=== PATIENT | female | born 1955 | race African-American/Black ===

== ENCOUNTER → 2016-12-07 | Outpatient (CLI) | payer MEDICARE | LOC: WI 13:03 | PROVIDERS: ATTEND Family Medicine | DX: Z78.0 Asymptomatic menopausal state (principal); M85.88 Other specified disorders of bone density and structure, other site | CPT/HCPCS: 77080 ==

== ENCOUNTER → 2016-12-14 | Outpatient (CLI) | payer MEDICARE | LOC: RAD 12:12 | PROVIDERS: ATTEND Family Medicine | DX: Z87.891 Personal history of nicotine dependence (principal) | CPT/HCPCS: G0297 ==

== ENCOUNTER → 2017-01-09 | Outpatient (CLI) | payer MEDICARE ==
--- NOTE | 2017-01-11 09:54 | RADIOLOGY REPORT (SQ) ---
EXAM DESCRIPTION: PET CT LIMITED COMPLETED DATE/TIME: 01/09/2017 9:17 pm REASON FOR STUDY: SOLITARY PULMONARY NODULE R91.1 SOLITARY PULMONARY NODULE COMPARISON: CT lung cancer screening 12/14/2016 RADIONUCLIDE AND DOSE: 74 mCi F18 FDG The route of agent administration: Intravenous FASTING BLOOD SUGAR: 11.7 mg/dl CONTRAST TYPE AND DOSE: No CT contrast given. TECHNIQUE: Blood glucose level was verified. Above dose of FDG was injected intravenously. 2-D seg mented attenuation correction images were obtained from the base of the skull to the midthighs. Nonc ontrast CT images were obtained for attenuation correction and fusion with emission images. CT image s were performed without oral or intravenous contrast and are not sensitive for parenchymal lesions. A series of overlapping emission PET images were obtained. Images reviewed and manipulated at [facility] [employer] work station by the radiologist. Images stored on PACS. LIMITATIONS: None. FINDINGS: HEAD AND NECK: No worrisome areas of increased metabolic activity in the soft tissues of t he head and neck. There is mild bilateral physiologic activity in the pharyngeal tonsils with SUV of 5, and mild vocal cord activity likely from talking after the FDG injection. CHEST: There is significant obstructive lung disease with hyperlucency and hyper inflation of both up per lobes. In the right upper lobe, a spiculated mass with increased metabolic activity is present, with highly suspicious for malignancy. This measures 3.5 x 2.5 cm in size with SUV of 12. Accounting for differ ences in technique, size is similar compared to CT screening chest CT 12/14/2016. On axial under age 64, slightly superior and lateral to the dominant upper lobe mass, a 6 mm nodule i s present which is metabolically active with SUV of 2. This is worrisome for a small satellite tumor lesion adjacent to the upper lobe dominant mass. This is measured on axial CT image 63. No hypermetabolic masses or adenopathy in the mediastinum or mak. Remainder of the lungs are unrema rkable. In the upper inner quadrant right breast, a 2.5 x 1.5 cm ill-defined nodule is present with faint met abolic activity SUV 1.48 this is best shown on axial CT image 66. Diagnostic bilateral mammograms an d right breast ultrasound recommended for followup ABDOMEN AND PELVIS: No areas of abnormal metabolic activity in the abdomen or pelvis. Expected physi ologic activity is present in the genitourinary system and bowel. Multiple hepatic cysts are present . BONES: No areas of increased metabolic activity in the bony structures worrisome for metastatic dise ase PROXIMAL LOWER EXTREMITIES: No areas of abnormal metabolic activity in the soft tissues of the lower extremities. ADDITIONAL CT FINDINGS: Post hysterectomy. LAD calcification. Blood pool activity 2.2 SUV, liver ac tivity 2.7 SUV OTHER: No other significant findings. IMPRESSION: Hypermetabolic right upper lobe mass worrisome for primary malignancy. 6 mm adjacent hy permetabolic nodule worrisome for satellite malignancy. Significant changes of obstructive lung dise ase. Incidental finding of a ill-defined mass in the upper inner quadrant right breast for which additiona l diagnostic mammography and right breast ultrasound recommended for followup. TECHNICAL DOCUMENTATION: JOB ID: [id number] [employer]- All Rights Reserved
== END ==
LOC: RAD 18:38
PROVIDERS: ATTEND Family Medicine
DX: R91.1 Solitary pulmonary nodule (principal)
CPT/HCPCS: 78814; A9552

== ENCOUNTER 2017-02-09 11:15 | Inpatient (IN) | payer MEDICARE ==
[2017-02-08 10:12] LABS: ABSOLUTE LYMPHOCYTES (AUTO) 1.7 10^3/uL (0.5-4.7); ABSOLUTE MONOCYTES (AUTO) 0.7 10^3/uL (0.1-1.4); ABSOLUTE NEUT (AUTO) 3.9 10^3/uL (1.7-8.2); BASOPHILS % (AUTO) 0.5 % (0-2); EOSINOPHILS % (AUTO) 0.8 % (0-6); HEMATOCRIT 34.9 % (36.0-47.0); HEMOGLOBIN 11.3 g/dL (12.0-15.5); LYMPHOCYTES % (AUTO) 25.9 % (13-45); MEAN CORPUSCULAR HEMOGLOBIN 27.3 pg (27.0-33.4); MEAN CORPUSCULAR HGB CONC 32.2 g/dL (32.0-36.0); MEAN CORPUSCULAR VOLUME 85 fl (80-97); MONOCYTES % (AUTO) 11.7 % (3-13); RED BLOOD COUNT 4.12 10^6/uL (3.72-5.28); RED CELL DISTRIBUTION WIDTH 15.1 % (11.5-14.0); SEGMENTED NEUTROPHILS % (AUTO) 61.1 % (42-78); WHITE BLOOD COUNT 6.4 10^3/uL (4.0-10.5)
[2017-02-08 10:16] LABS: PROTHROMBIN TIME 14.1 SEC (11.4-15.4)
[2017-02-08 10:17] LABS: PARTIAL THROMBOPLASTIN TIME 33.1 SEC (23.5-35.8)
--- NOTE | 2017-02-08 10:27 | EKG REPORT ---
SEVERITY:- NORMAL ECG - SINUS RHYTHM : Confirmed by: Poly Sheets 08-Feb-2017 10:27:15
[2017-02-08 10:33] LABS: ANION GAP 14 (5-19); BLOOD UREA NITROGEN 13 mg/dL (7-20); CALCIUM 9.2 mg/dL (8.4-10.2); CARBON DIOXIDE 26 mmol/L (22-30); CHLORIDE 101 mmol/L (98-107); CREATININE RESULT 0.82 mg/dL (0.52-1.25); GLUCOSE 112 mg/dL (75-110); SODIUM 140.5 mmol/L (137-145)
[2017-02-08 10:35] LABS: POTASSIUM 4.1 mmol/L (3.6-5.0)
[~2017-02-09 11:15] MED LIST: ALBUTEROL SULFATE 0.083% NEB 2.5 MG/3 ML AMPUL NEB PRN; GLYCOPYRROLATE INJ 0.4 MG/2 ML VIAL ONE; LACTATED RINGERS 1000 ML IV PRN; LIDOCAINE 0.5% INJ-PF (5 MG/ML) 50 ML SDV SUBCUT PRN; LIDOCAINE 4% INJ/PF (40 MG/ML) 5 ML AMPUL NEB PRN; NEOSTIGMINE METHYLSULFATE 10 MG/10 ML VIAL ONE; ROCURONIUM BROMIDE INJ 50 MG/5 ML VIAL IV ONE; SUCCINYLCHOLINE CHLORIDE INJ 200 MG/10 ML VIAL ONE
[2017-02-09] MEDS ORDERED: LIDOCAINE 1% INJ-PF (10 MG/ML) 30 ML SDV ONE (11:48)
[2017-02-09] MEDS ORDERED: MIDAZOLAM 2 MG/2 ML INJ ONE (12:02)
[2017-02-09] MEDS ORDERED: ONDANSETRON HCL INJ/PF 4 MG/2 ML SDV ONE (12:02)
[2017-02-09] MEDS ORDERED: PROPOFOL INJ 200 MG/20 ML VIAL IV ONE (12:02)
[2017-02-09] MEDS ORDERED: DEXAMETHASONE SOD PHOSPHATE INJ 4 MG/1 ML VIAL ONE (12:02)
[2017-02-09] MEDS ORDERED: FENTANYL CITRATE INJ/PF 250 MCG/5 ML AMPULE ONE (12:02)
[2017-02-09] MEDS ORDERED: DEXMEDETOMIDINE INJ 80 MCG/20 ML VIAL IV ONE (12:03)
--- NOTE | 2017-02-09 13:53 | Operative Report ---
Operative Report DATE OF SURGERY: 02/09/17 Operative Report: Patient was kept n.p.o. 12 hours prior to the procedure taken to the preop area where consents were reviewed and IV access was established. Patient was taken to the bronchoscopy suite was intubated with a #8 ET tube for anesthesiology. Then using a T size [employer] bronchoscope her tracheobronchial tree was explored. There were no abnormalities of the distal trachea or splaying of the diandra. There were no abnormalities of the left mainstem bronchus left upper lobe lingula or left lower lobe. There were no abnormalities of the right mainstem bronchus the right bronchus intermedius right middle lobe of the right lower lobe there was some submucosal swelling in the subsegments of the right upper lobe. Multiple transbronchial biopsies were taken from the right upper lobe in the region of the right upper lobe mass patient tolerated the procedure well postprocedure chest x-ray did not demonstrate a pneumothorax. Tissue has been sent to pathology for appropriate studies PREOPERATIVE DIAGNOSIS: Right lung mass POSTOPERATIVE DIAGNOSIS: Right lung mass OPERATION: Fiber optic bronchoscopy bronchoalveolar lavage transbronchial biopsies of the right upper lobe SURGEON: MOSES AWAD ANESTHESIA: GA TISSUE REMOVED OR ALTERED: Transbronchial biopsies right upper lobe COMPLICATIONS: Patient was extubated with excellent saturation however when she came to the recovery room she was hard to arouse and had apneic periods she was subsequently reintubated ESTIMATED BLOOD LOSS: 10 cc INTRAOPERATIVE FINDINGS: Distal trachea and diandra left mainstem bronchus all within normal limits right mainstem bronchus right bronchus intermedius right middle lobe right lower lobe all within normal limits this was minimal submucosal edema in the subsegments of the right upper lobe
--- NOTE | 2017-02-09 14:01 | RADIOLOGY REPORT (SQ) ---
EXAM DESCRIPTION: CHEST SINGLE VIEW COMPLETED DATE/TIME: 02/09/2017 1:29 pm REASON FOR STUDY: S/P R LUNG BIOPSY COMPARISON: PET-CT 01/09/2017 CT lung cancer screening 12/14/2016 for EXAM PARAMETERS: NUMBER OF VIEWS: One view. TECHNIQUE: Single frontal radiographic view of the chest acquired. RADIATION DOSE: NA LIMITATIONS: None. FINDINGS: LUNGS AND PLEURA: Right upper lobe mass is similar compared to prior CT exams. No right-sided pneumothorax. Mild increased interstitial markings on the right side, nonspecific. Since the prior CT exams, patient has developed atelectasis/partial collapse of the left lower lobe i n retrocardiac region. No left pneumothorax. No right or left pleural effusion. MEDIASTINUM AND HILAR STRUCTURES: No masses. Contour normal. HEART AND VASCULAR STRUCTURES: Stable cardiomegaly BONES: No acute findings. HARDWARE: None in the chest. OTHER: No other significant finding. IMPRESSION: Post right bronchoscopic biopsy without pneumothorax. Since the prior imaging, patient has developed left lower lobe collapse with volume loss and air bron chograms. Superimposed pneumonia could not entirely be excluded. TECHNICAL DOCUMENTATION: JOB ID: [id number]
[2017-02-09] MEDS ORDERED: PROPOFOL 100 ML IV ONE (14:17)
[2017-02-09] MEDS ORDERED: ACETAMINOPHEN 650 MG SUPP.RECT PR PRN (14:24)
[2017-02-09] MEDS ORDERED: PHARMACY COMMUNICATION ORDER MC NR (14:30)
[2017-02-09] MEDS: AMPICILLIN SODIUM/SULBACTAM NA 3 GM in NORMAL SALINE 100 ML IV SCH ×2 (15:01→21:25)
--- NOTE | 2017-02-09 15:41 | RADIOLOGY REPORT (SQ) ---
EXAM DESCRIPTION: CHEST SINGLE VIEW COMPLETED DATE/TIME: 02/09/2017 3:28 pm REASON FOR STUDY: ETT PLACEMENT COMPARISON: 02/09/2017, 1324 hours EXAM PARAMETERS: NUMBER OF VIEWS: One view. TECHNIQUE: Single frontal radiographic view of the chest acquired. RADIATION DOSE: NA LIMITATIONS: None. FINDINGS: Interval placement of an endotracheal tube with the tip 3 cm above the diandra. A nasogastric tube is present with the tip and side port in the stomach. LUNGS AND PLEURA: Unchanged right upper lobe mass, and mild diffuse increased interstitial markings t hroughout the right lung. Interval re-expansion of the left lower lobe with few persistent interstit ial lines at the left lung base. No fluffy alveolar infiltrates worrisome for acute pulmonary edema. No pneumothorax. No pleural eff usion. MEDIASTINUM AND HILAR STRUCTURES: No masses. Contour normal. HEART AND VASCULAR STRUCTURES: Stable cardiomegaly BONES: No acute findings. HARDWARE: Endotracheal tube, nasogastric tubes in good positioning OTHER: No other significant finding. IMPRESSION: Endotracheal and nasogastric tubes in good positioning Interval re-expansion of the left lower lobe Unchanged right upper lobe mass Bilateral interstitial increased markings right greater than left. TECHNICAL DOCUMENTATION: JOB ID: [id number]
--- NOTE | 2017-02-09 15:51 | RADIOLOGY REPORT (SQ) ---
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 NUMBER OF VIEWS: One view. TECHNIQUE: Supine radiographic image of the abdomen acquired. LIMITATIONS: None. FINDINGS: BOWEL GAS PATTERN: Normal bowel gas pattern. No dilated loops. NG tube is in place. The tip is in the left upper quadrant. CALCIFICATIONS: No suspicious calcifications. SOFT TISSUES: No gross mass or suggestion of organomegaly. HARDWARE: None in the abdomen. BONES: No acute fracture. No worrisome bone lesions. OTHER: No other significant finding. IMPRESSION: NO RADIOGRAPHIC EVIDENCE FOR ACUTE ABDOMINAL DISEASE. TECHNICAL DOCUMENTATION: JOB ID: [id number] [employer]- All Rights Reserved
[2017-02-09] MEDS: PROPOFOL 100 ML IV PRN ×3 (16:03→21:57)
[2017-02-09 16:53] LABS: ARTERIAL BLOOD BASE EXCESS -0.2 mmol/L; ARTERIAL BLOOD O2 SATURATION 90.9 % (94-98)
[2017-02-09 16:54] LABS: ABSOLUTE LYMPHOCYTES (AUTO) 0.7 10^3/uL (0.5-4.7); ABSOLUTE MONOCYTES (AUTO) 0.2 10^3/uL (0.1-1.4); ABSOLUTE NEUT (AUTO) 7.8 10^3/uL (1.7-8.2); BASOPHILS % (AUTO) 0.1 % (0-2); HEMATOCRIT 32.8 % (36.0-47.0); HEMOGLOBIN 10.8 g/dL (12.0-15.5); HGB HCT DIFFERENCE -0.4; LYMPHOCYTES % (AUTO) 7.8 % (13-45); MEAN CORPUSCULAR VOLUME 85 fl (80-97); MONOCYTES % (AUTO) 2.5 % (3-13); RED BLOOD COUNT 3.87 10^6/uL (3.72-5.28); RED CELL DISTRIBUTION WIDTH 15.2 % (11.5-14.0); SEGMENTED NEUTROPHILS % (AUTO) 89.6 % (42-78); WHITE BLOOD COUNT 8.7 10^3/uL (4.0-10.5)
[2017-02-09 17:00] LABS: PROTHROMBIN TIME 14.5 SEC (11.4-15.4)
[2017-02-09 17:01] LABS: PARTIAL THROMBOPLASTIN TIME 33.2 SEC (23.5-35.8)
[2017-02-09 17:12] LABS: ALANINE AMINOTRANSFERASE 46 U/L (9-52); ALBUMIN 3.8 g/dL (3.5-5.0); ALKALINE PHOSPHATASE 100 U/L (38-126); ANION GAP 11 (5-19); ASPARTATE AMINO TRANSFERASE 29 U/L (14-36); BILIRUBIN,DIRECT 0.3 mg/dL (0.0-0.4); BILIRUBIN,TOTAL 0.8 mg/dL (0.2-1.3); BLOOD UREA NITROGEN 13 mg/dL (7-20); CALCIUM 8.8 mg/dL (8.4-10.2); CARBON DIOXIDE 27 mmol/L (22-30); CHLORIDE 101 mmol/L (98-107); CREATININE RESULT 0.79 mg/dL (0.52-1.25); GLUCOSE 121 mg/dL (75-110); POTASSIUM 4.1 mmol/L (3.6-5.0); SODIUM 139.2 mmol/L (137-145); TOTAL PROTEIN 7.6 g/dL (6.3-8.2)
--- NOTE | 2017-02-09 17:27 | RADIOLOGY REPORT (SQ) ---
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 TECHNIQUE: Intra-operative images acquired during surgical procedure to evaluate progress. NUMBER OF IMAGES: 2 LIMITATIONS: None. FINDINGS: Bronchoscopic images recorded. IMPRESSION: IMAGE(S) OBTAINED DURING PROCEDURE. COMMENT: Quality ID 145: Final reports for procedures using fluoroscopy that document radiation exp osure indices, or exposure time and number of fluorographic images (if radiation exposure indices are not available) Please consult full operative report of the attending physician for description of the procedure. TECHNICAL DOCUMENTATION: JOB ID: [id number] [employer]- All Rights Reserved
--- NOTE | 2017-02-09 17:27 | RADIOLOGY REPORT (SQ) ---
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 TECHNIQUE: Intra-operative images acquired during surgical procedure to evaluate progress. NUMBER OF IMAGES: 2 LIMITATIONS: None. FINDINGS: Bronchoscopic images recorded. IMPRESSION: IMAGE(S) OBTAINED DURING PROCEDURE. COMMENT: Quality ID 145: Final reports for procedures using fluoroscopy that document radiation exp osure indices, or exposure time and number of fluorographic images (if radiation exposure indices are not available) Please consult full operative report of the attending physician for description of the procedure. TECHNICAL DOCUMENTATION: JOB ID: [id number] [employer]- All Rights Reserved
[2017-02-09] MEDS: FAMOTIDINE INJ/PF 20 MG/2 ML SDV IV SCH (17:58)
--- NOTE | 2017-02-09 18:15 | PDOC CONSULTATION ---
Consultation Consult Date: 02/09/17 Attending physician:: MOSES AWAD Consult reason:: Respiratory failure History of Present Illness Admission Date/PCP: 02/09/17 14:32 FIORELLA HERNANDEZ MD History of Present Illness: MARIELA SERNA is a 61 year old female Extensive history of smoking is non-smoker last 6 years in the last 2 years she has been O2 dependent on nasal cannula recent CT scan showed a right upper lobe mass as well as a questionable mass in the right breast at this time mammography is pending. However today she underwent fiberoptic bronchoscopy with bronchoalveolar lavage transbronchial biopsies Early needle biopsies. She tolerated procedure well and her postop procedure was 99% she was taken to the recovery room however she became progressively apneic and was reintubated on mechanical ventilator. She had saturations are 99% on FiO2 of 35% was still lethargic. she was subsequently taken to the ICU given adequate oxygenation and ventilation as well as intravenous antibiotic and ulcer prophylaxis. These findings and incidents were discussed with the family members who are acutely aware of the current situation Past Medical History Cardiac Medical History: Reports: Hypertension - meds x 8 yrs Denies: Coronary Artery Disease, Myocardial Infarction Pulmonary Medical History: Reports: Bronchitis, Chronic Obstructive Pulmonary Disease (COPD) - o2 2.5 l continuous Denies: Asthma, Pneumonia Neurological Medical History: Denies: Seizures Musculoskeltal Medical History: Reports: Arthritis - knees Hematology: Reports: Anemia - few months ago Social History Information Source: [facility] Records Lives with: Family Smoking Status: Unknown if Ever Smoked Passive smoke exposure as: Both Frequency of Alcohol Use: None Hx Recreational Drug Use: No Drugs: None Hx Prescription Drug Abuse: No Family History Parental Family History Reviewed: Yes Children Family History Reviewed: Yes Sibling(s) Family History Reviewed.: Yes Medication/Allergy Home Medications: Alendronate Sodium [Fosamax] 70 mg PO ASDIR 02/08/17 Aspirin 81 mg PO DAILY 02/08/17 Atorvastatin Calcium [Lipitor 20 mg Tablet] 20 mg PO QHS 02/08/17 Diclofenac Sodium [Voltaren] 100 gm TP ASDIR 02/08/17 Gabapentin [Gralise] 300 mg PO BID 02/08/17 Ipratropium/Albuterol Sulfate [Iprat-Albut 0.5-3(2.5) mg/3 ml] 3 ml IH ASDIR Losartan/Hydrochlorothiazide [Hyzaar 100-25 Tablet] 1 each PO DAILY 02/08/17 Multivitamin [Multivitamins] 1 each PO ASDIR 02/08/17 Sitagliptin Phosphate [Januvia] 100 mg PO DAILY 02/08/17 Tiotropium [place] [Spiriva Handihaler 18 mcg/dose (30 Dose)] 18 mcg IH ASDIR Fluticasone/Salmeterol [Advair 100-50 Diskus 14 Dose/Diskus] 1 inh IH BID Alprazolam [Xanax 0.25 mg Tablet] 0.25 mg PO Q8HP PRN #90 tablet 02/12/17 Allergies/Adverse Reactions: No Known Allergies Allergy (Verified 02/09/17 11:58) Physical Exam Vital Signs: Temp Pulse Resp BP Pulse Ox 98.4 F 89 12 119/89 H 96 02/09/17 16:00 02/09/17 16:00 02/09/17 16:00 02/09/17 16:00 02/09/17 17:51 Intake & Output 02/08/17 02/09/17 02/10/17 06:59 06:59 06:59 Intake Total 700 Output Total 545 Balance 155 Weight 99.79 kg 100 kg Results Laboratory Results: 02/09/17 16:45 02/09/17 16:45 02/09/17 02/09/17 02/09/17 16:40 16:45 16:45 WBC 8.7 RBC 3.87 Hgb 10.8 L Hct 32.8 L MCV 85 MCH 28.0 MCHC 33.0 RDW 15.2 H Plt Count 284 Seg Neutrophils % 89.6 H Lymphocytes % 7.8 L Monocytes % 2.5 L Eosinophils % 0.0 Basophils % 0.1 Absolute Neutrophils 7.8 Absolute Lymphocytes 0.7 Absolute Monocytes 0.2 Absolute Eosinophils 0.0 Absolute Basophils 0.0 Carbonic Acid 1.46 H HCO3/H2CO3 Ratio 17:1 ABG pH 7.35 ABG pCO2 48.4 H ABG pO2 63.2 L ABG HCO3 25.9 ABG O2 Saturation 90.9 L ABG Base Excess -0.2 FiO2 45% Sodium 139.2 Potassium 4.1 Chloride 101 Carbon Dioxide 27 Anion Gap 11 BUN 13 Creatinine 0.79 Est GFR ( Amer) > 60 Est GFR (Non-Af Amer) > 60 Glucose 121 H Calcium 8.8 Total Bilirubin 0.8 AST 29 ALT 46 Alkaline Phosphatase 100 Total Protein 7.6 Albumin 3.8 Impressions: Chest X-Ray 02/09/17 00:00 IMPRESSION: IMAGE(S) OBTAINED DURING PROCEDURE. Fluoroscopy 02/09/17 00:00 IMPRESSION: IMAGE(S) OBTAINED DURING PROCEDURE. KUB X-Ray 02/09/17 14:22 IMPRESSION: NO RADIOGRAPHIC EVIDENCE FOR ACUTE ABDOMINAL DISEASE.
[2017-02-09] MEDS ORDERED: DEXTROSE 5%-NORMAL SALINE 1,000 ML IV PRN (18:55)
[2017-02-09] MEDS ORDERED: DEXTROSE 50%-WATER SYRINGE 25 GM/50 ML DOSE IV PRN (19:23)
[2017-02-09] MEDS ORDERED: DEXTROSE 40% GEL 15 GM TUBE PO PRN (19:23)
[2017-02-09] MEDS ORDERED: GLUCAGON,HUMAN RECOMB 1 MG INJ IM PRN (19:23)
[2017-02-09] MEDS ORDERED: DEXTROSE 40% GEL 15 GM TUBE X 2 PO PRN (19:23)
[2017-02-09] MEDS ORDERED: INSULIN LISPRO 100 UNIT/ML 3 ML VIAL SUBCUT PRN (19:23)
[2017-02-09] MEDS ORDERED: DEXTROSE 50%-WATER SYRINGE 12.5 GM/25 ML DOSE IV PRN (19:23)
[2017-02-09] MEDS: IPRATROPIUM/ALBUTEROL 0.5-2.5 MG/3 ML AMPUL NEB SCH (20:10)
[2017-02-10] MEDS: IPRATROPIUM/ALBUTEROL 0.5-2.5 MG/3 ML AMPUL NEB SCH ×4 (01:55→20:31)
[2017-02-10] MEDS: PROPOFOL 100 ML IV PRN ×3 (03:14→08:05)
[2017-02-10] MEDS: AMPICILLIN SODIUM/SULBACTAM NA 3 GM in NORMAL SALINE 100 ML IV SCH ×4 (03:14→21:41)
[2017-02-10 04:33] LABS: PROTHROMBIN TIME 14.6 SEC (11.4-15.4)
[2017-02-10 04:43] LABS: ABSOLUTE LYMPHOCYTES (AUTO) 1.3 10^3/uL (0.5-4.7); ABSOLUTE MONOCYTES (AUTO) 0.9 10^3/uL (0.1-1.4); BASOPHILS % (AUTO) 0.1 % (0-2); HEMATOCRIT 34.1 % (36.0-47.0); HGB HCT DIFFERENCE -1.1; LYMPHOCYTES % (AUTO) 16.3 % (13-45); MEAN CORPUSCULAR HEMOGLOBIN 27.5 pg (27.0-33.4); MEAN CORPUSCULAR HGB CONC 32.2 g/dL (32.0-36.0); MEAN CORPUSCULAR VOLUME 85 fl (80-97); MONOCYTES % (AUTO) 10.5 % (3-13); RED BLOOD COUNT 3.99 10^6/uL (3.72-5.28); RED CELL DISTRIBUTION WIDTH 14.8 % (11.5-14.0); SEGMENTED NEUTROPHILS % (AUTO) 73.1 % (42-78); WHITE BLOOD COUNT 8.2 10^3/uL (4.0-10.5)
[2017-02-10 05:02] LABS: ALANINE AMINOTRANSFERASE 37 U/L (9-52); ALBUMIN 3.8 g/dL (3.5-5.0); ALKALINE PHOSPHATASE 102 U/L (38-126); ANION GAP 14 (5-19); ASPARTATE AMINO TRANSFERASE 28 U/L (14-36); BILIRUBIN,DIRECT 0.3 mg/dL (0.0-0.4); BILIRUBIN,TOTAL 0.7 mg/dL (0.2-1.3); BLOOD UREA NITROGEN 10 mg/dL (7-20); CALCIUM 8.7 mg/dL (8.4-10.2); CARBON DIOXIDE 29 mmol/L (22-30); CHLORIDE 102 mmol/L (98-107); GLUCOSE 140 mg/dL (75-110); MAGNESIUM 2.4 mg/dL (1.6-2.3); PHOSPHORUS 3.9 mg/dL (2.5-4.5); POTASSIUM 3.8 mmol/L (3.6-5.0); SODIUM 144.7 mmol/L (137-145)
[2017-02-10 05:24] LABS: ARTERIAL BLOOD BASE EXCESS 5.6 mmol/L; ARTERIAL BLOOD O2 SATURATION 94.1 % (94-98)
[2017-02-10] MEDS: FAMOTIDINE INJ/PF 20 MG/2 ML SDV IV SCH ×2 (05:39→18:01)
--- NOTE | 2017-02-10 08:01 | RADIOLOGY REPORT (SQ) ---
EXAM DESCRIPTION: CHEST SINGLE VIEW COMPLETED DATE/TIME: 02/10/2017 6:57 am REASON FOR STUDY: resp failure COMPARISON: 02/09/2017. EXAM PARAMETERS: NUMBER OF VIEWS: One view. TECHNIQUE: Single frontal radiographic view of the chest acquired. RADIATION DOSE: NA LIMITATIONS: None. FINDINGS: LUNGS AND PLEURA: Moderate patchiness of the right upper lobe. Mild interstitial markings . MEDIASTINUM AND HILAR STRUCTURES: No masses. Contour normal. HEART AND VASCULAR STRUCTURES: Heart normal in size. Normal vasculature. BONES: No acute findings. HARDWARE: Adequate appearing endotracheal tube and partially imaged NG tube. OTHER: No other significant finding. IMPRESSION: No significant interval change. TECHNICAL DOCUMENTATION: JOB ID: [id number]
--- NOTE | 2017-02-10 16:29 | PDOC PROGRESS REPORT ---
Subjective Progress Note for:: 02/10/17 Subjective:: Awake and responsive Physical Exam Vital Signs: Temp Pulse Resp BP Pulse Ox 98.4 F 84 17 86/67 L 96 02/10/17 07:49 02/10/17 08:00 02/10/17 07:49 02/10/17 07:49 02/10/17 07:49 Intake & Output 02/09/17 02/10/17 02/11/17 06:59 06:59 06:59 Intake Total 2112 Output Total 3310 120 Balance -1198 -120 Weight 99.3 kg General appearance: PRESENT: no acute distress, cooperative, disheveled, obese, well-developed Head exam: PRESENT: atraumatic, normocephalic Eye exam: PRESENT: conjunctiva pale, EOMI Mouth exam: PRESENT: dry mucosa, neck supple, tongue midline, other - ET tube in place Neck exam: ABSENT: carotid bruit, JVD, lymphadenopathy, thyromegaly Respiratory exam: PRESENT: decreased breath sounds, prolonged expiratory phas, rales, rhonchi, symmetrical, unlabored Cardiovascular exam: PRESENT: RRR, +S1, +S2 Pulses: PRESENT: normal radial pulses GI/Abdominal exam: PRESENT: normal bowel sounds, soft. ABSENT: distended, guarding, mass, organolmegaly, rebound, tenderness Rectal exam: PRESENT: deferred Gentrourinary exam: PRESENT: indwelling catheter Musculoskeletal exam: PRESENT: normal inspection Neurological exam: PRESENT: awake Skin exam: PRESENT: dry, warm Results Laboratory Results: 02/10/17 03:53 02/10/17 03:53 02/09/17 02/09/17 02/09/17 16:40 16:45 16:45 WBC 8.7 RBC 3.87 Hgb 10.8 L Hct 32.8 L MCV 85 MCH 28.0 MCHC 33.0 RDW 15.2 H Plt Count 284 Seg Neutrophils % 89.6 H Lymphocytes % 7.8 L Monocytes % 2.5 L Eosinophils % 0.0 Basophils % 0.1 Absolute Neutrophils 7.8 Absolute Lymphocytes 0.7 Absolute Monocytes 0.2 Absolute Eosinophils 0.0 Absolute Basophils 0.0 Carbonic Acid 1.46 H HCO3/H2CO3 Ratio 17:1 ABG pH 7.35 ABG pCO2 48.4 H ABG pO2 63.2 L ABG HCO3 25.9 ABG O2 Saturation 90.9 L ABG Base Excess -0.2 FiO2 45% Sodium 139.2 Potassium 4.1 Chloride 101 Carbon Dioxide 27 Anion Gap 11 BUN 13 Creatinine 0.79 Est GFR ( Amer) > 60 Est GFR (Non-Af Amer) > 60 Glucose 121 H Calcium 8.8 Phosphorus Magnesium Total Bilirubin 0.8 AST 29 ALT 46 Alkaline Phosphatase 100 Total Protein 7.6 Albumin 3.8 02/10/17 02/10/17 02/10/17 03:53 03:53 05:07 WBC 8.2 RBC 3.99 Hgb 11.0 L Hct 34.1 L MCV 85 MCH 27.5 MCHC 32.2 RDW 14.8 H Plt Count 271 Seg Neutrophils % 73.1 Lymphocytes % 16.3 Monocytes % 10.5 Eosinophils % 0.0 Basophils % 0.1 Absolute Neutrophils 6.0 Absolute Lymphocytes 1.3 Absolute Monocytes 0.9 Absolute Eosinophils 0.0 Absolute Basophils 0.0 Carbonic Acid 1.45 H HCO3/H2CO3 Ratio 21:1 ABG pH 7.43 ABG pCO2 48.2 H ABG pO2 69.4 L ABG HCO3 31.0 H ABG O2 Saturation 94.1 ABG Base Excess 5.6 FiO2 40% Sodium 144.7 Potassium 3.8 Chloride 102 Carbon Dioxide 29 Anion Gap 14 BUN 10 Creatinine 0.80 Est GFR ( Amer) > 60 Est GFR (Non-Af Amer) > 60 Glucose 140 H Calcium 8.7 Phosphorus 3.9 Magnesium 2.4 H Total Bilirubin 0.7 AST 28 ALT 37 Alkaline Phosphatase 102 Total Protein 8.0 Albumin 3.8 Impressions: Fluoroscopy 02/09/17 00:00 IMPRESSION: IMAGE(S) OBTAINED DURING PROCEDURE. KUB X-Ray 02/09/17 14:22 IMPRESSION: NO RADIOGRAPHIC EVIDENCE FOR ACUTE ABDOMINAL DISEASE. Chest X-Ray 02/10/17 06:00 IMPRESSION: No significant interval change. Assessment & Plan - Diagnosis (1) Respiratory failure Is this a current diagnosis for this admission?: YesPlan: plan to extubate (2) COPD (chronic obstructive pulmonary disease) Is this a current diagnosis for this admission?: Yes (3) Lung mass Is this a current diagnosis for this admission?: Yes
[2017-02-11] MEDS: AMPICILLIN SODIUM/SULBACTAM NA 3 GM in NORMAL SALINE 100 ML IV SCH ×4 (03:28→21:03)
[2017-02-11 04:38] LABS: ABSOLUTE EOSINOPHILS # (AUTO) 0.1 10^3/uL (0.0-0.6); ABSOLUTE LYMPHOCYTES (AUTO) 2.2 10^3/uL (0.5-4.7); ABSOLUTE NEUT (AUTO) 5.3 10^3/uL (1.7-8.2); BASOPHILS % (AUTO) 0.3 % (0-2); HEMATOCRIT 31.2 % (36.0-47.0); HEMOGLOBIN 10.1 g/dL (12.0-15.5); HGB HCT DIFFERENCE -0.9; MEAN CORPUSCULAR HEMOGLOBIN 27.5 pg (27.0-33.4); MEAN CORPUSCULAR HGB CONC 32.3 g/dL (32.0-36.0); MEAN CORPUSCULAR VOLUME 85 fl (80-97); MONOCYTES % (AUTO) 11.3 % (3-13); RED BLOOD COUNT 3.67 10^6/uL (3.72-5.28); RED CELL DISTRIBUTION WIDTH 15.4 % (11.5-14.0); SEGMENTED NEUTROPHILS % (AUTO) 61.4 % (42-78); WHITE BLOOD COUNT 8.6 10^3/uL (4.0-10.5)
[2017-02-11 04:55] LABS: ALANINE AMINOTRANSFERASE 45 U/L (9-52); ALBUMIN 3.4 g/dL (3.5-5.0); ALKALINE PHOSPHATASE 88 U/L (38-126); ANION GAP 9 (5-19); ASPARTATE AMINO TRANSFERASE 25 U/L (14-36); BILIRUBIN,DIRECT 0.2 mg/dL (0.0-0.4); BILIRUBIN,TOTAL 0.8 mg/dL (0.2-1.3); BLOOD UREA NITROGEN 11 mg/dL (7-20); CALCIUM 8.3 mg/dL (8.4-10.2); CARBON DIOXIDE 29 mmol/L (22-30); CHLORIDE 104 mmol/L (98-107); CREATININE RESULT 0.78 mg/dL (0.52-1.25); GLUCOSE 105 mg/dL (75-110); MAGNESIUM 2.3 mg/dL (1.6-2.3); PHOSPHORUS 3.4 mg/dL (2.5-4.5)
[2017-02-11] MEDS: FAMOTIDINE INJ/PF 20 MG/2 ML SDV IV SCH ×2 (05:44→21:03)
[2017-02-11 05:58] LABS: ARTERIAL BLOOD BASE EXCESS 3.8 mmol/L; ARTERIAL BLOOD O2 SATURATION 94.8 % (94-98)
[2017-02-11] MEDS: IPRATROPIUM/ALBUTEROL 0.5-2.5 MG/3 ML AMPUL NEB SCH ×3 (07:55→19:43)
[2017-02-11] MEDS ORDERED: DEXTROSE 50%-WATER 25 GM/50 ML DISP.SYRIN IV PRN ×2 (09:31)
[2017-02-11] MEDS ORDERED: GLUCAGON,HUMAN RECOMB 1 MG INJ SUBCUT PRN (09:31)
[2017-02-11] MEDS ORDERED: DEXTROSE 40% GEL 15 GM TUBE PO PRN ×2 (09:31)
[2017-02-11] MEDS ORDERED: FENTANYL CITRATE INJ/PF 100 MCG/2 ML AMPUL ONE (12:30)
[2017-02-11] MEDS ORDERED: MIDAZOLAM 2 MG/2 ML INJ ONE (12:30)
[2017-02-11] MEDS ORDERED: BENZOCAINE/MENTHOL SORE THROAT LOZENGE BUCCAL PRN (13:47)
[2017-02-11] MEDS ORDERED: MIDAZOLAM 2 MG/2 ML INJ IV PRN (13:48)
[2017-02-11] MEDS ORDERED: ACETAMINOPHEN 325 MG TABLET PO PRN (13:51)
--- NOTE | 2017-02-11 13:52 | RADIOLOGY REPORT (SQ) ---
EXAM DESCRIPTION: CHEST SINGLE VIEW COMPLETED DATE/TIME: 02/11/2017 1:25 pm REASON FOR STUDY: POST RIGHT LUNG BIOPSY COMPARISON: CT lung biopsy same date AP chest 02/10/2017 EXAM PARAMETERS: NUMBER OF VIEWS: One view. TECHNIQUE: Single frontal radiographic view of the chest acquired. RADIATION DOSE: NA LIMITATIONS: None. FINDINGS: LUNGS AND PLEURA: Films obtained immediately after right upper lobe nodule biopsy. During the biopsy, a small anterior pneumothorax was seen under CT fluoro which was near completely aspirat ed. 2 portable chest films in the CT suite show in apical small right pneumothorax. Trace right chest wa ll air. Stable right upper lobe mass, stable increased interstitial markings in the mid and lower right lung. Left lung hyperinflated and hyperlucent but clear. No left pneumothorax or pleural effusion. These findings were communicated to Dr. Collazo, 1310 hours 02/11/2017. MEDIASTINUM AND HILAR STRUCTURES: No masses. Contour normal. HEART AND VASCULAR STRUCTURES: Stable mild cardiomegaly BONES: No acute findings. HARDWARE: None in the chest. OTHER: No other significant finding. IMPRESSION: Small right apical pneumothorax post right upper lobe CT-guided lung biopsy. TECHNICAL DOCUMENTATION: JOB ID: [id number]
--- NOTE | 2017-02-11 13:56 | RADIOLOGY REPORT (SQ) ---
EXAM DESCRIPTION: CT BIOPSY LUNG/MEDIASTINUM COMPLETED DATE/TIME: 02/11/2017 1:28 pm REASON FOR STUDY: RUL mass R91.8 OTHER NONSPECIFIC ABNORMAL FINDING OF LUNG FIELD Z79.899 OTHER LO NG TERM (CURRENT) DRUG THERAPY Z79.01 SHELTER (CURRENT) USE OF ANTICOAGULANTS COMPARISON: CT lung screening 12/14/2016 PET-CT 01/09/2017 Chest films 02/09/2017, 02/10/2017 TECHNIQUE: CT guided biopsy of the right upper lobe mass performed with conscious sedation. CT Fluoroscopy Time: [address] scanners at this facility use dose modulation, iterative reconstruction, and/or weight based d osing when appropriate to reduce radiation dose to as low as reasonably achievable (ALARA). [facility]: Dose Right [facility]: CareDose [facility]: Dose Right [facility]: Teradose 4D [facility]: Smart Technologies RADIATION DOSE: Up-to-date CT equipment and radiation dose reduction techniques were employed. CTDI vol: 4.0 - 19.5 mGy. DLP: 447 mGy-cm.mGy. FINDINGS: The procedure was discussed with the patient and the patient agreed to the procedure. Prio r to the procedure, a time out was performed to verify the patient's identity and planned procedure. IV sedation was administered and physician direction by the registered nurse using 1.5 milligrams of Versed and 50 micrograms of fentanyl. Physiologic monitoring was provided before, during, and after s edation. The total sedation time was 50 minutes. Documentation face to face time, the performing proceduralist, spent monitoring the patient: [address] scanning was performed to localize the percutaneous site for the biopsy approach. After sterile skin prep and local lidocaine for skin and deep tissue anesthesia, a coaxial biopsy nee dle was used to obtain multiple cores of tissue. Specimens were received by Cynthia from cytology. The biopsy tissue was submitted to the lab in formalin. During the procedure, patient developed a small anterior pneumothorax. This was successfully aspirat ed palate patient was on the CT table. Post procedure chest film dictated separately demonstrates a tiny apical pneumothorax. Patient's vital signs were stable throughout the procedure. These finding s were discussed with Dr. Collazo, 1310 hours 02/11/2017. Pathology is pending at the time of dictation. IMPRESSION: CT GUIDED BIOPSY OF THE RIGHT UPPER LOBE PERFORMED WITH SMALL RIGHT APICAL PNEUMOTHORAX. CONSCIOUS SEDATION PATHOLOGY PENDING. COMMENT: Quality ID [id number]: Final reports for procedures using fluoroscopy that document radiation exp osure indices, or exposure time and number of fluorographic images (if radiation exposure indices are not available) Patient medication list reviewed: Yes- Quality ID# [id number]:Eligible professional attests to documenting i n the medical record they obtained, updated, or reviewed the patient's current medications.. TECHNICAL DOCUMENTATION: JOB ID: [id number] Quality ID# [id number]: Final reports with documentation of one or more dose reduction techniques (e.g., Aut omated exposure control, adjustment of the mA and/or kV according to patient size, use of iterative r econstruction technique) 2010 [employer]- All Rights Reserved
--- NOTE | 2017-02-11 15:40 | RADIOLOGY REPORT (SQ) ---
EXAM DESCRIPTION: CHEST SINGLE VIEW COMPLETED DATE/TIME: 02/11/2017 3:11 pm REASON FOR STUDY: POST RIGHT LUNG BIOPSY--- 2 HR FILM COMPARISON: 02/11/2017, 1304 hours EXAM PARAMETERS: NUMBER OF VIEWS: One view. TECHNIQUE: Single frontal radiographic view of the chest acquired. RADIATION DOSE: NA LIMITATIONS: None. FINDINGS: LUNGS AND PLEURA: Tiny right apical pneumothorax, smaller than on films from earlier today . Persistent right upper lobe mass. Bibasilar increased interstitial markings, stable. Left upper lobe hyperinflated from obstructive di sease. No pleural effusions. No left pneumothorax. MEDIASTINUM AND HILAR STRUCTURES: No masses. Contour normal. HEART AND VASCULAR STRUCTURES: Heart normal in size. Normal vasculature. BONES: No acute findings. HARDWARE: None in the chest. OTHER: Report called to Dr. Collazo, 1530 hours 02/11/2017. IMPRESSION: Trace right apical pneumothorax post lung biopsy. TECHNICAL DOCUMENTATION: JOB ID: [id number]
[2017-02-11] MEDS ORDERED: ONDANSETRON HCL INJ/PF 4 MG/2 ML SDV ONE ×2 (17:28→17:31)
--- NOTE | 2017-02-11 18:20 | RADIOLOGY REPORT (SQ) ---
EXAM DESCRIPTION: CHEST SINGLE VIEW COMPLETED DATE/TIME: 02/11/2017 5:59 pm REASON FOR STUDY: REPEAT CHECK FOR PNEUMO COMPARISON: 02/11/2017 1501 hours EXAM PARAMETERS: NUMBER OF VIEWS: One view. TECHNIQUE: Single frontal radiographic view of the chest acquired. RADIATION DOSE: NA LIMITATIONS: None. FINDINGS: LUNGS AND PLEURA: Persistent opacities in the right lung. Persistent tiny right apical pn eumothorax is stable. Left lung with parenchymal opacity at the left base. MEDIASTINUM AND HILAR STRUCTURES: No masses. Contour normal. HEART AND VASCULAR STRUCTURES: Heart normal in size. Normal vasculature. BONES: No acute findings. HARDWARE: None in the chest. OTHER: No other significant finding. IMPRESSION: Persistent tiny right apical pneumothorax without progression since the previous study Right upper lobe masslike opacity with bibasilar opacities. TECHNICAL DOCUMENTATION: JOB ID: [id number]
[2017-02-11] MEDS ORDERED: ALPRAZOLAM 0.25 MG TABLET PO PRN (18:48)
[2017-02-11] MEDS ORDERED: ONDANSETRON HCL INJ/PF 4 MG/2 ML SDV IV PRN (19:00)
[2017-02-12] MEDS: AMPICILLIN SODIUM/SULBACTAM NA 3 GM in NORMAL SALINE 100 ML IV SCH ×2 (02:51→09:55)
[2017-02-12] MEDS: FAMOTIDINE INJ/PF 20 MG/2 ML SDV IV SCH (05:26)
[2017-02-12] MEDS: IPRATROPIUM/ALBUTEROL 0.5-2.5 MG/3 ML AMPUL NEB SCH ×2 (08:24→13:47)
--- NOTE | 2017-02-12 08:31 | RADIOLOGY REPORT (SQ) ---
EXAM DESCRIPTION: CHEST PA/LAT COMPLETED DATE/TIME: 02/12/2017 8:22 am REASON FOR STUDY: r pneumothorax COMPARISON: 02/11/2017. CT 02/11/2017. TECHNIQUE: Frontal and lateral radiographic views of the chest acquired. NUMBER OF VIEWS: Two view. LIMITATIONS: None. FINDINGS: LUNGS AND PLEURA: No significant pneumothorax appreciated today. Patchy opacity throughou t the right lung with blunting of right costophrenic angle, as before. MEDIASTINUM AND HILAR STRUCTURES: No masses or contour abnormalities. HEART AND VASCULAR STRUCTURES: Heart normal size. No evidence for failure. BONES: No acute findings. HARDWARE: None in the chest. OTHER: No other significant finding. IMPRESSION: 1. No significant pneumothorax appreciated on today's images. 2. Stable chest. Recentl y biopsied right upper lobe mass. TECHNICAL DOCUMENTATION: JOB ID: [id number] [employer]- All Rights Reserved
[2017-02-12 12:08] VITALS: BP 101/90
--- NOTE | 2017-02-12 20:00 | PDOC PROGRESS REPORT ---
Subjective Progress Note for:: 02/11/17 Subjective:: Awake and responsive feeling better sent to Radiology for CT guided needle biopsy Physical Exam Vital Signs: Temp Pulse Resp BP Pulse Ox 98.4 F 83 16 101/90 H 97 02/12/17 12:04 02/12/17 14:00 02/12/17 13:47 02/12/17 12:04 02/12/17 12:04 Intake & Output 02/11/17 02/12/17 02/13/17 06:59 06:59 06:59 Intake Total 420 2204 Output Total 1840 900 Balance -1420 1304 Weight 102.3 kg 103.2 kg General appearance: PRESENT: no acute distress, cooperative, disheveled, obese, well-developed Head exam: PRESENT: atraumatic, normocephalic Eye exam: PRESENT: conjunctiva pale, EOMI Mouth exam: PRESENT: moist, neck supple, tongue midline Neck exam: ABSENT: carotid bruit, JVD, lymphadenopathy, thyromegaly Respiratory exam: PRESENT: decreased breath sounds, prolonged expiratory phas, rhonchi, unlabored Cardiovascular exam: PRESENT: RRR, +S1, +S2 Pulses: PRESENT: normal radial pulses GI/Abdominal exam: PRESENT: normal bowel sounds, soft. ABSENT: distended, guarding, mass, organolmegaly, rebound, tenderness Rectal exam: PRESENT: deferred Musculoskeletal exam: PRESENT: normal inspection Neurological exam: PRESENT: alert, awake Psychiatric exam: PRESENT: normal mood Skin exam: PRESENT: dry, warm Results Laboratory Results: 02/11/17 03:54 02/11/17 03:54 Impressions: Fluoroscopy 02/09/17 00:00 IMPRESSION: IMAGE(S) OBTAINED DURING PROCEDURE. KUB X-Ray 02/09/17 14:22 IMPRESSION: NO RADIOGRAPHIC EVIDENCE FOR ACUTE ABDOMINAL DISEASE. Lung Biopsy CT 02/11/17 09:33 IMPRESSION: CT GUIDED BIOPSY OF THE RIGHT UPPER LOBE PERFORMED WITH SMALL RIGHT APICAL PNEUMOTHORAX. CONSCIOUS SEDATION PATHOLOGY PENDING. Chest X-Ray 02/12/17 07:57 IMPRESSION: 1. No significant pneumothorax appreciated on today's images. 2. Stable chest. Recently biopsied right upper lobe mass. Assessment & Plan - Diagnosis (1) Respiratory failure Is this a current diagnosis for this admission?: NoPlan: extubated w/o difficulty (2) COPD (chronic obstructive pulmonary disease) Is this a current diagnosis for this admission?: Yes (3) Lung mass Is this a current diagnosis for this admission?: YesPlan: biopsy from bronchoscopy was not diagnostic patient sent to Radiology for CT guided needle biopsy ---> R pneumothorax appears to be improving;if stable in am will dc to home
--- NOTE | 2017-02-12 20:24 | PDOC DISCHARGE SUMMARY ---
General - Admit/Disc Date/PCP Admission Date/Primary Care Provider: 02/09/17 14:32 FIORELLA HERNANDEZ MD Discharge Date: 02/12/17 - Discharge Diagnosis (1) Respiratory failure Is this a current diagnosis for this admission?: YesSummary: delayed extubation post bronchoscopy----->resolved extubated chronicO2 dependence (2) COPD (chronic obstructive pulmonary disease) Is this a current diagnosis for this admission?: YesSummary: stable (3) Lung mass Is this a current diagnosis for this admission?: YesSummary: s/p biopsy via bronchoscopy non diagnostic.Reviewed CT with radiology agreed to CT guided needle biopsy but felt risk of pneumothorax was elevated.We proceed while in patient as with chronic O2 respiratory failure any potential monitoring and/or intervention would be readily available. susequently r pneumothorax did develope and was followed to a rapid resolution (4) Pneumothorax of right lung after biopsy Is this a current diagnosis for this admission?: YesSummary: resolved - Additional Information Discharge Diet: Regular Discharge Activity: Activity As Tolerated Home Medications: Alendronate Sodium [Fosamax] 70 mg PO ASDIR 02/08/17 Aspirin 81 mg PO DAILY 02/08/17 Atorvastatin Calcium [Lipitor 20 mg Tablet] 20 mg PO QHS 02/08/17 Diclofenac Sodium [Voltaren] 100 gm TP ASDIR 02/08/17 Gabapentin [Gralise] 300 mg PO BID 02/08/17 Ipratropium/Albuterol Sulfate [Iprat-Albut 0.5-3(2.5) mg/3 ml] 3 ml IH ASDIR Losartan/Hydrochlorothiazide [Hyzaar 100-25 Tablet] 1 each PO DAILY 02/08/17 Multivitamin [Multivitamins] 1 each PO ASDIR 02/08/17 Sitagliptin Phosphate [Januvia] 100 mg PO DAILY 02/08/17 Tiotropium [place] [Spiriva Handihaler 18 mcg/dose (30 Dose)] 18 mcg IH ASDIR Fluticasone/Salmeterol [Advair 100-50 Diskus 14 Dose/Diskus] 1 inh IH BID Alprazolam [Xanax 0.25 mg Tablet] 0.25 mg PO Q8HP PRN #90 tablet 07/01/17 History of Present Illness Patient complains of: somulence History of Present Illness: MARIELA SERNA is a 61 year old female Extensive history of smoking is non-smoker last 6 years in the last 2 years she has been O2 dependent on nasal cannula recent CT scan showed a right upper lobe mass as well as a questionable mass in the right breast at this time mammography is pending. However today she underwent fiberoptic bronchoscopy with bronchoalveolar lavage transbronchial biopsies Early needle biopsies. She tolerated procedure well and her postop procedure was 99% she was taken to the recovery room however she became progressively apneic and was reintubated on mechanical ventilator. She had saturations are 99% on FiO2 of 35% was still lethargic. she was subsequently taken to the ICU given adequate oxygenation and ventilation as well as intravenous antibiotic and ulcer prophylaxis. These findings and incidents were discussed with the family members who are acutely aware of the current situation Hospital Course Hospital Course: underwent brochoscopy but was unable due to remain extubated due to obtundation, Patient was admitted to ICU extubated next am.Biopsy was not diagnostic ; patient underwent CT guided needle biopsy ------> R pneumothorax this resolved.Patient subsequently discharged to home on same O2,medication with the addition of Xanax 0.5 tid will see in office in 5 days. Physical Exam Vital Signs: Temp Pulse Resp BP Pulse Ox 98.4 F 83 16 101/90 H 97 02/12/17 12:04 02/12/17 14:00 02/12/17 13:47 02/12/17 12:04 02/12/17 12:04 Intake & Output 02/11/17 02/12/17 02/13/17 06:59 06:59 06:59 Intake Total 420 2204 Output Total 1840 900 Balance -1420 1304 Weight 102.3 kg 103.2 kg General appearance: PRESENT: no acute distress, cooperative, obese, well- developed, well-nourished Head exam: PRESENT: atraumatic Eye exam: PRESENT: conjunctiva pale, EOMI, PERRLA Neck exam: PRESENT: full ROM. ABSENT: carotid bruit, JVD, lymphadenopathy, thyromegaly Respiratory exam: PRESENT: decreased breath sounds, prolonged expiratory phas, symmetrical, unlabored Cardiovascular exam: PRESENT: RRR, +S1, +S2 Pulses: PRESENT: normal radial pulses GI/Abdominal exam: PRESENT: normal bowel sounds, soft. ABSENT: distended, guarding, mass, organolmegaly, rebound, tenderness Rectal exam: PRESENT: deferred Musculoskeletal exam: PRESENT: normal inspection Neurological exam: PRESENT: alert, awake Psychiatric exam: PRESENT: normal mood Skin exam: PRESENT: dry, warm Results Laboratory Results: 02/11/17 03:54 02/11/17 03:54 Impressions: Fluoroscopy 02/09/17 00:00 IMPRESSION: IMAGE(S) OBTAINED DURING PROCEDURE. KUB X-Ray 02/09/17 14:22 IMPRESSION: NO RADIOGRAPHIC EVIDENCE FOR ACUTE ABDOMINAL DISEASE. Lung Biopsy CT 02/11/17 09:33 IMPRESSION: CT GUIDED BIOPSY OF THE RIGHT UPPER LOBE PERFORMED WITH SMALL RIGHT APICAL PNEUMOTHORAX. CONSCIOUS SEDATION PATHOLOGY PENDING. Chest X-Ray 02/12/17 07:57 IMPRESSION: 1. No significant pneumothorax appreciated on today's images. 2. Stable chest. Recently biopsied right upper lobe mass. Plan Discharge Plan: to home with baseline O2 2l n/c, continue home meds with addition of xanax 0.5 tid will see patient in office in 5 days Time Spent: Greater than 30 Minutes
== END 2017-02-12 14:45 | disposition home or self-care (01) | DRG 167 ==
LOC: END 11:15 → ICU 14:32 → 3N 02-10 17:33
PROVIDERS: ADMIT Internal Medicine Pulmonary Disease; ATTEND Internal Medicine Pulmonary Disease
PROC: 0B9C8ZX Drainage of Right Upper Lung Lobe, Via Natural or Artificial Opening Endoscopic, Diagnostic (ICD-10-PCS; 2017-02-09)
PROC: 0BBC8ZX Excision of Right Upper Lung Lobe, Via Natural or Artificial Opening Endoscopic, Diagnostic (ICD-10-PCS; principal; 2017-02-09 13:30)
DX: J96.21 Acute and chronic respiratory failure with hypoxia (principal); J95.811 Postprocedural pneumothorax; R91.8 Other nonspecific abnormal finding of lung field; J44.9 Chronic obstructive pulmonary disease, unspecified; I10 Essential (primary) hypertension; M17.0 Bilateral primary osteoarthritis of knee; D64.9 Anemia, unspecified; Z99.81 Dependence on supplemental oxygen; K21.9 Gastro-esophageal reflux disease without esophagitis; Z79.01 Long term (current) use of anticoagulants; Z79.899 Other long term (current) drug therapy; Z80.1 Family history of malignant neoplasm of trachea, bronchus and lung; Z87.891 Personal history of nicotine dependence
CPT/HCPCS: 31628; 32405; 36415; 36600; 520; 71010; 71020; 74000; 80048; 80053; 82803; 82962; 83735; 84100; 85025; 85610; 85730; 88305; 88313; 88341; 88342; 93005; 93010; 94002; 94003; 94799; J0295; J0330; J1100; J2250; J2405; J2704; J3010; J3490; J7120; J7620; S0028

== ENCOUNTER → 2017-02-22 | Outpatient (CLI) | payer MEDICARE ==
--- NOTE | 2017-02-22 15:33 | WOMENS IMAGING REPORT ---
EXAM DESCRIPTION: BILAT DIAGNOSTIC MAMMO W/CAD; U/S BREAST UNILAT LIMITED COMPLETED DATE/TIME: 02/22/2017 1:50 pm; 02/22/2017 2:24 pm REASON FOR STUDY: UNSPECIFIED LUMP IN BREAST N63; RT BREAST NODULE SEEN ON PET SCAN N63 UNSPECIFIED LUMP IN BREAST COMPARISON: PET-CT dated 01/09/2017. TECHNIQUE: Standard craniocaudal and mediolateral oblique views of each breast recorded using digita l acquisition. Additional true lateral view of the right breast also acquired. LIMITATIONS: None. FINDINGS: RIGHT BREAST MASSES: No suspicious masses. CALCIFICATIONS: No new or suspicious calcifications. ARCHITECTURAL DISTORTION: None. DEVELOPING DENSITY: None. ASYMMETRY: None noted. OTHER: No other significant findings. LEFT BREAST MASSES: No suspicious masses. CALCIFICATIONS: No new or suspicious calcifications. ARCHITECTURAL DISTORTION: None. DEVELOPING DENSITY: None. ASYMMETRY: None noted. OTHER: No other significant finding. Read with the assistance of CAD: .[facility] - R2 Cenova Version 1.3 .[facility] Imaging - R2 Cenova Version 1.3 .[facility] Imaging - R2 Cenova Version 2.4 .[facility] [place] R2 Cenova Version 2.4 .[facility] - R2 Resource Efficiency Manager Version 9.2 BREAST ULTRASOUND: TECHNIQUE: Static and dynamic grayscale images acquired of the right breast in the specific areas of clinical/mammographic concern. Selected color Doppler images recorded. ELASTOGRAPHY PERFORMED: No. LIMITATIONS: None. FINDINGS: MASS: No mass identified. Normal glandular tissue. ELASTOGRAPHY CHARACTERISTICS: Not applicable. OTHER: No other significant finding. IMPRESSION: Unremarkable bilateral mammogram. No worrisome mammographic or sonographic finding in t he right breast. BREAST DENSITY: b. There are scattered areas of fibroglandular density. BIRAD: 1 Negative. RECOMMENDATION: RECOMMENDED FOLLOW UP: Birads 1 or 2: The patient should resume routine screening . SPECIFIC INTERVENTION/IMAGING/CONSULTATION RECOMMENDED:No additional intervention/ imaging/consultati on needed at this time. COMMUNICATION:The imaging findings were not discussed with the patient. Her referring provider has be en notified of the findings. COMMENT: The patient has been notified of the results by letter per SA requirements. Additional no tification policies are in place for contacting patient with suspicious or incomplete findings. Quality ID #[id number]: The [employer] recommends an annual screening mammogram for women aged 40 years or over. This facility utilizes a reminder system to ensure that all patients receive reminder letters, and/or direct phone calls for appointments. This includes reminders for routine scr eening mammograms, diagnostic mammograms, or other Breast Imaging Interventions when appropriate. Th is patient will be placed in the appropriate reminder system. The [employer] (ACR) has developed recommendations for screening MRI of the breast s in certain patient populations, to be used in conjunction with mammography. Breast MRI surveillanc e may be appropriate for women with more than 20% lifetime risk of developing breast cancer as deter mined by genetic testing, significant family history of the disease, or history of mantle radiation f or Hodgkins Disease. ACR Practice Guidelines 2008. TECHNICAL DOCUMENTATION: FINDING NUMBER: (1) ASSESSMENT: (1) JOB ID: [id number] [employer]- All Rights Reserved
--- NOTE | 2017-02-22 15:33 | WOMENS IMAGING REPORT ---
EXAM DESCRIPTION: BILAT DIAGNOSTIC MAMMO W/CAD; U/S BREAST UNILAT LIMITED COMPLETED DATE/TIME: 02/22/2017 1:50 pm; 02/22/2017 2:24 pm REASON FOR STUDY: UNSPECIFIED LUMP IN BREAST N63; RT BREAST NODULE SEEN ON PET SCAN N63 UNSPECIFIED LUMP IN BREAST COMPARISON: PET-CT dated 01/09/2017. TECHNIQUE: Standard craniocaudal and mediolateral oblique views of each breast recorded using digita l acquisition. Additional true lateral view of the right breast also acquired. LIMITATIONS: None. FINDINGS: RIGHT BREAST MASSES: No suspicious masses. CALCIFICATIONS: No new or suspicious calcifications. ARCHITECTURAL DISTORTION: None. DEVELOPING DENSITY: None. ASYMMETRY: None noted. OTHER: No other significant findings. LEFT BREAST MASSES: No suspicious masses. CALCIFICATIONS: No new or suspicious calcifications. ARCHITECTURAL DISTORTION: None. DEVELOPING DENSITY: None. ASYMMETRY: None noted. OTHER: No other significant finding. Read with the assistance of CAD: .[facility] - R2 Cenova Version 1.3 .[facility] Imaging - R2 Cenova Version 1.3 .[facility] Imaging - R2 Cenova Version 2.4 .[facility] [place] R2 Cenova Version 2.4 .[facility] - R2 Weigher Operator Version 9.2 BREAST ULTRASOUND: TECHNIQUE: Static and dynamic grayscale images acquired of the right breast in the specific areas of clinical/mammographic concern. Selected color Doppler images recorded. ELASTOGRAPHY PERFORMED: No. LIMITATIONS: None. FINDINGS: MASS: No mass identified. Normal glandular tissue. ELASTOGRAPHY CHARACTERISTICS: Not applicable. OTHER: No other significant finding. IMPRESSION: Unremarkable bilateral mammogram. No worrisome mammographic or sonographic finding in t he right breast. BREAST DENSITY: b. There are scattered areas of fibroglandular density. BIRAD: 1 Negative. RECOMMENDATION: RECOMMENDED FOLLOW UP: Birads 1 or 2: The patient should resume routine screening . SPECIFIC INTERVENTION/IMAGING/CONSULTATION RECOMMENDED:No additional intervention/ imaging/consultati on needed at this time. COMMUNICATION:The imaging findings were not discussed with the patient. Her referring provider has be en notified of the findings. COMMENT: The patient has been notified of the results by letter per SA requirements. Additional no tification policies are in place for contacting patient with suspicious or incomplete findings. Quality ID #[id number]: The [employer] recommends an annual screening mammogram for women aged 40 years or over. This facility utilizes a reminder system to ensure that all patients receive reminder letters, and/or direct phone calls for appointments. This includes reminders for routine scr eening mammograms, diagnostic mammograms, or other Breast Imaging Interventions when appropriate. Th is patient will be placed in the appropriate reminder system. The [employer] (ACR) has developed recommendations for screening MRI of the breast s in certain patient populations, to be used in conjunction with mammography. Breast MRI surveillanc e may be appropriate for women with more than 20% lifetime risk of developing breast cancer as deter mined by genetic testing, significant family history of the disease, or history of mantle radiation f or Hodgkins Disease. ACR Practice Guidelines 2008. TECHNICAL DOCUMENTATION: FINDING NUMBER: (1) ASSESSMENT: (1) JOB ID: [id number] [employer]- All Rights Reserved
== END ==
LOC: WI 12:17
PROVIDERS: ATTEND Family Medicine
DX: N63 Unspecified lump in breast (principal)
CPT/HCPCS: 76642; G0204; 77066

== ENCOUNTER → 2017-06-06 | Day surgery (SDC) | payer MEDICARE, MEDICAID ==
[~2017-06-06] MED LIST changes: -ALBUTEROL SULFATE 0.083% NEB 2.5 MG/3 ML AMPUL NEB PRN; -GLYCOPYRROLATE INJ 0.4 MG/2 ML VIAL ONE; -LACTATED RINGERS 1000 ML IV PRN; -LIDOCAINE 0.5% INJ-PF (5 MG/ML) 50 ML SDV SUBCUT PRN; +LIDOCAINE 1% INJ-PF (10 MG/ML) 30 ML SDV ONE; -LIDOCAINE 4% INJ/PF (40 MG/ML) 5 ML AMPUL NEB PRN; -NEOSTIGMINE METHYLSULFATE 10 MG/10 ML VIAL ONE; -ROCURONIUM BROMIDE INJ 50 MG/5 ML VIAL IV ONE; -SUCCINYLCHOLINE CHLORIDE INJ 200 MG/10 ML VIAL ONE
--- NOTE | 2017-06-17 17:14 | WOMENS IMAGING REPORT ---
EXAM DESCRIPTION: U/S BREAST BX; RIGHT DIG DX MAMMO NO CHG COMPLETED DATE/TIME: 06/06/2017 1:09 pm; 06/06/2017 1:16 pm REASON FOR STUDY: LUMP; N63; N63.1 S/P RT US BX FOR CLIP PLACEMENT N63.10 UNSPECIFIED LUMP IN THE R IGHT BREAST, UNSPECIFIED GINA COMPARISON: PET-CT 01/09/2017 CT-guided lung biopsy 02/11/2017 Diagnostic mammograms and ultrasound 02/22/2017 TECHNIQUE: The procedure was discussed with the patient and the patient agreed to proceed. The patient was scanned and the area of interest in the medial right breast near the sternum was loca lized. This correlates with the area of concern on prior imaging studies, particularly the PET-CT fr om 01/09/2017. This area was targeted for ultrasound-guided core biopsy. After sterile skin prep and 3 mL local lidocaine 1% for skin and deep tissue anesthesia, a 14 gauge c oaxial core biopsy needle was used to obtain several cores of tissue from the lesion. Under ultrasou nd guidance, a ribbon clip was placed in the areas sampled. There were no immediate post-procedure c omplications. MAMMOGRAM: Post-procedure two view mammogram was acquired in the digital mammogram suite. The clip wa s in the expected location. No significant hematoma. Pathology yields a diagnosis of granulomatous inflammation with focal necrosis. No calcifications. No acid-fast or fungal organisms are identified. No malignancy. Pathology is concordant. LIMITATIONS: None. FINDINGS: Ultrasound guided breast biopsy as described above. POST PROCEDURE MAMMOGRAMS FOR MARKER PLACEMENT: Yes IMPRESSION: ULTRASOUND-GUIDED CORE BIOPSY OF THE RIGHT BREAST YIELDS A DIAGNOSIS OF BENIGN GRANULOMA TOUS INFLAMMATION COMMENT: COMMUNICATION: The patient's provider has been notified of the findings. The provider will discuss the findings with the patient. Patient medication list reviewed: Yes- Quality ID# [id number]:Eligible professional attests to documenting i n the medical record they obtained, updated, or reviewed the patient's current medications. TECHNICAL DOCUMENTATION: JOB ID: [id number] [employer]- All Rights Reserved
== END ==
LOC: RAD 14:02
PROVIDERS: ATTEND Internal Medicine
PROC: 0HBT3ZX Excision of Right Breast, Percutaneous Approach, Diagnostic (ICD-10-PCS; principal; 2017-06-06)
DX: N64.1 Fat necrosis of breast (principal); N61.0 Mastitis without abscess
CPT/HCPCS: 88305 ×2; 88313 ×2; 19083; J3490

== ENCOUNTER → 2017-08-02 | Outpatient (CLI) | payer MEDICAID, MEDICARE ==
--- NOTE | 2017-08-02 09:35 | RADIOLOGY REPORT (SQ) ---
EXAM DESCRIPTION: CT CHEST WITHOUT COMPLETED DATE/TIME: 08/02/2017 9:21 am REASON FOR STUDY: MAL PATRICK OF UPPER LOBE C34.11 MALIGNANT NEOPLASM OF UPPER LOBE, RIGHT BRONCHUS OR L COMPARISON: 02/11/2017 TECHNIQUE: CT scan performed of the chest without intravenous contrast. Images reviewed with lung, soft tissue and bone windows. Reconstructed coronal and sagittal MPR images reviewed. All images st ored on PACS. All CT scanners at this facility use dose modulation, iterative reconstruction, and/or weight based d osing when appropriate to reduce radiation dose to as low as reasonably achievable (ALARA). [facility]: Dose Right [facility]: CareDose [facility]: Dose Right [facility]: Teradose 4D [facility]: Smart [employer] RADIATION DOSE: CT Rad equipment meets quality standard of care and radiation dose reduction techniq ues were employed. CTDIvol: 12.0 mGy. DLP: 437 mGy-cm. mGy. LIMITATIONS: No technical limitations. FINDINGS: LUNGS AND PLEURA: There are bilateral emphysematous changes. The right upper lobe spicula eladia mass has decreased in size since biopsy performed in January of this year. The lesion measures 3.2 x 2.2 cm in greatest dimensions compared to 4.0 x 3.2 cm on prior study. Surgical clips are now seen in close proximity to the mass. There are numerous subpleural blebs. No satellite lesions. HILAR AND MEDIASTINAL STRUCTURES: No obvious mediastinal or hilar adenopathy on this non contrasted s tudy. HEART AND VASCULAR STRUCTURES: No aneurysm. No pericardial effusion. UPPER ABDOMEN: There are multiple areas of decreased attenuation throughout the liver. Some are cons istent with cysts. Metastatic disease cannot be excluded. Recommend CT abdomen pelvis with contrast for further workup. THYROID AND OTHER SOFT TISSUES: No masses. No adenopathy. BONES: No significant finding. HARDWARE: None in the chest. OTHER: No other significant findings. IMPRESSION: Spiculated right upper lobe mass is again noted. No evidence of distant metastases. e lesion is smaller in size when compared to January of this year. Largest diameter today is 3.2 x 2.2 cm. TECHNICAL DOCUMENTATION: JOB ID: [id number] Quality ID # [id number]: Final reports with documentation of one or more dose reduction techniques (e.g., Au tomated exposure control, adjustment of the mA and/or kV according to patient size, use of iterative reconstruction technique) 2010 [employer]- All Rights Reserved
== END ==
LOC: RAD 08:57
PROVIDERS: ATTEND Internal Medicine
DX: C34.11 Malignant neoplasm of upper lobe, right bronchus or lung (principal)
CPT/HCPCS: 71250

== ENCOUNTER → 2017-10-09 | Outpatient (CLI) | payer MEDICAID, MEDICARE ==
--- NOTE | 2017-10-11 17:35 | RADIOLOGY REPORT (SQ) ---
EXAM DESCRIPTION: PET CT SKULL/THIGH COMPLETED DATE/TIME: 10/09/2017 6:29 pm REASON FOR STUDY: LUNG CANCER C34.11 MALIGNANT NEOPLASM OF UPPER LOBE, RIGHT BRONCHUS OR L COMPARISON: Prior PET-CT 01/01/2017 here PET-CT report 04/19/2017 [facility] CT lung cancer screening 12/14/2016. RADIONUCLIDE AND DOSE: 11.3 mCi F18 FDG The route of agent administration: Intravenous FASTING BLOOD SUGAR: 99 mg/dl CONTRAST TYPE AND DOSE: No CT contrast given. TECHNIQUE: Blood glucose level was verified. Above dose of FDG was injected intravenously. 2-D seg mented attenuation correction images were obtained from the base of the skull to the midthighs. Nonc ontrast CT images were obtained for attenuation correction and fusion with emission images. CT image s were performed without oral or intravenous contrast and are not sensitive for parenchymal lesions. A series of overlapping emission PET images were obtained. Images reviewed and manipulated at [facility] work station by the radiologist. Images stored on PACS. LIMITATIONS: None. FINDINGS: HEAD AND NECK: No areas of abnormal metabolic activity in the soft tissues of the head and neck. CHEST: Primary lung nodule in the right upper lobe with surrounding radiotherapy treatment markers no w measures 2.5 x 1.7 cm in size, with SUV is 3.1 (was 3.5 x 2.5 cm in size with SUV of 12 on PET-CT . PET-CT from by 2 does not give a measurement, but SUV was reported at 18.7) The metabolic activity in the medial right breast seen on PET-CT 01/09/2017 has resolved. This was bi opsied under ultrasound and shown to represent granulomatous disease. There is a new 9 mm nodule in the right upper lobe on axial image 74. This could represent a fluid-f illed bulla or bleb rather than soft tissue nodule. SUV is 1.6 which is below blood pool activity. Remainder of the lungs exhibit extensive changes of obstructive disease. No pleural effusion or pneu mothorax. No other areas of the soft tissue density or new parenchymal nodules. No high metabolically active axillary, hilar, or mediastinal lymph nodes. There is very mild increased uptake over the right pectoralis muscle without discrete mass (SUV 3.9) and mild increased uptake along the right anterior chest wall intercostal muscles near the primary no dule with SUV of 2.3, these findings may represent post radiation therapy change. ABDOMEN AND PELVIS: No areas of abnormal metabolic activity in the abdomen or pelvis. Expected physi ologic activity is present in the genitourinary system and bowel. PROXIMAL LOWER EXTREMITIES: No areas of abnormal metabolic activity in the soft tissues of the lower extremities. BONES: No abnormal metabolic activity in the visualized skeleton. ADDITIONAL CT FINDINGS: Coronary artery calcifications. Multiple antibiotics band. Post hysterectom y. OTHER: Liver background SUV 2.2. Blood pool background activity 1.8 SUV IMPRESSION: Decreased size and metabolic activity of the right upper lobe nodule. No metabolically active right hilar or mediastinal lymph nodes. No right axillary adenopathy. Previously biopsied soft tissue nodule in the medial right breast seen on PET-CT 01/09/2017 is no long er metabolically active 9 mm nodule right upper lobe could represent a fluid-filled bulla or bleb rather than a soft tissue n odule. SUV is 1.6, which is less than blood pool activity TECHNICAL DOCUMENTATION: JOB ID: [id number] [employer]- All Rights Reserved Reading location - IP/workstation name: [facility]
== END ==
LOC: RAD 15:49
PROVIDERS: ATTEND Internal Medicine
DX: C34.11 Malignant neoplasm of upper lobe, right bronchus or lung (principal)
CPT/HCPCS: 78815; A9552

== ENCOUNTER → 2018-01-10 | Outpatient (CLI) | payer MEDICAID, MEDICARE ==
--- NOTE | 2018-01-10 09:58 | RADIOLOGY REPORT (SQ) ---
EXAM DESCRIPTION: CT CHEST WITHOUT COMPLETED DATE/TIME: 01/10/2018 9:11 am REASON FOR STUDY: LUNG CA (C34.11) C34.11 MALIGNANT NEOPLASM OF UPPER LOBE, RIGHT BRONCHUS OR L COMPARISON: PET-CT 10/09/2017 CT chest 08/02/2017 CT lung biopsy 02/11/2017 TECHNIQUE: CT scan performed of the chest without intravenous contrast. Images reviewed with lung, soft tissue and bone windows. Reconstructed coronal and sagittal MPR images reviewed. All images st ored on PACS. All CT scanners at this facility use dose modulation, iterative reconstruction, and/or weight based d osing when appropriate to reduce radiation dose to as low as reasonably achievable (ALARA). [facility]: Dose Right [facility]: CareDose [facility]: Dose Right [facility]: Teradose 4D [facility]: [employer] RADIATION DOSE: CT Rad equipment meets quality standard of care and radiation dose reduction techniq ues were employed. CTDIvol: 13.3 mGy. DLP: 491 mGy-cm. mGy. LIMITATIONS: No technical limitations. FINDINGS: LUNGS AND PLEURA: Diffuse changes of obstructive lung disease bilaterally are stable. Min imal airspace disease in the lingula and lateral lung base is present likely atelectasis. Pneumonia could not be excluded. Patient has radiotherapy treatment markers in the right upper lobe adjacent to a 2.7 x 1.9 cm right u pper lobe nodule on image 32 (was 2.5 x 1.7 cm 10/09/2017, 3.2 x 2.2 cm 08/02/2017). No pleural effusion. No pneumothorax. No other lung nodules. HILAR AND MEDIASTINAL STRUCTURES: No identified masses or abnormal nodes. No obvious aneurysm. HEART AND VASCULAR STRUCTURES: Ascending thoracic aorta measures 3.8 cm, stable. Moderate left coron matthias artery calcification. Trace pericardial fluid without cardiomegaly. UPPER ABDOMEN: Stable hepatic cysts and 2.3 cm hemangioma right lobe liver. THYROID AND OTHER SOFT TISSUES: No masses. No adenopathy. BONES: No significant finding. HARDWARE: None in the chest. OTHER: No other significant findings. IMPRESSION: 2.7 x 1 cm right upper lobe nodule with radiotherapy treatment markers, slightly larger than in September 2017. TECHNICAL DOCUMENTATION: JOB ID: [id number] Quality ID # 436: Final reports with documentation of one or more dose reduction techniques (e.g., Au tomated exposure control, adjustment of the mA and/or kV according to patient size, use of iterative reconstruction technique) 2010 [employer]- All Rights Reserved Reading location - IP/workstation name: [email or web address]
== END ==
LOC: RAD 08:57
PROVIDERS: ATTEND Physician Assistant Medical
DX: C34.11 Malignant neoplasm of upper lobe, right bronchus or lung (principal)
CPT/HCPCS: 71250

== ENCOUNTER → 2018-01-25 | Outpatient (CLI) | payer MEDICARE, MEDICAID ==
--- NOTE | 2018-01-26 08:33 | WOMENS IMAGING REPORT ---
EXAM DESCRIPTION: BILAT SCREENING MAMMO W/CAD COMPLETED DATE/TIME: 01/25/2018 9:05 am REASON FOR STUDY: SCREENING MAMMO Z12.31 ENCNTR SCREEN MAMMOGRAM FOR MALIGNANT NEOPLASM OF ROBERTO COMPARISON: 06/06/2017, 02/22/2017 TECHNIQUE: Standard craniocaudal and mediolateral oblique views of each breast recorded using Gigi Hilla l acquisition. LIMITATIONS: None. FINDINGS: No masses, calcifications or architectural distortion. No areas of suspicion. Read with the assistance of CAD. .[facility] - R2 [employer] Version 1.3 .[facility] - R2 [employer] Version 1.3 .[facility] - R2 [employer] Version 2.4 .[facility] - R2 [employer] Version 2.4 .[facility] - R2 [employer] Version 9.2 IMPRESSION: NORMAL MAMMOGRAM. BIRADS 1. BREAST DENSITY: b. There are scattered areas of fibroglandular density. BIRAD: 1 NEGATIVE RECOMMENDATION: ROUTINE SCREENING COMMENT: The patient has been notified of the results by letter per SA requirements. Additional no tification policies are in place for contacting patient with suspicious or incomplete findings. Quality ID #225: The [employer] recommends an annual screening mammogram for women aged 40 years or over. This facility utilizes a reminder system to ensure that all patients receive reminder letters, and/or direct phone calls for appointments. This includes reminders for routine scr eening mammograms, diagnostic mammograms, or other Breast Imaging Interventions when appropriate. Th is patient will be placed in the appropriate reminder system. The [employer] (ACR) has developed recommendations for screening MRI of the breast s in certain patient populations, to be used in conjunction with mammography. Breast MRI surveillanc e may be appropriate for women with more than 20% lifetime risk of developing breast cancer as deter mined by genetic testing, significant family history of the disease, or history of mantle radiation f or Hodgkins Disease. ACR Practice Guidelines 2008. TECHNICAL DOCUMENTATION: FINDING NUMBER: (1) ASSESSMENT: (1) JOB ID: [id number] [employer]- All Rights Reserved Reading location - IP/workstation name: [facility]
== END ==
LOC: WI 08:38
PROVIDERS: ATTEND Family Medicine
DX: Z12.31 Encounter for screening mammogram for malignant neoplasm of breast (principal)
CPT/HCPCS: 77067

== ENCOUNTER → 2018-04-14 | Outpatient (CLI) | payer MEDICAID, MEDICARE ==
--- NOTE | 2018-04-14 09:35 | RADIOLOGY REPORT (SQ) ---
EXAM DESCRIPTION: CT CHEST WITHOUT COMPLETED DATE/TIME: 04/14/2018 8:48 am REASON FOR STUDY: LUNG CA C34.11 MALIGNANT NEOPLASM OF UPPER LOBE, RIGHT BRONCHUS OR L COMPARISON: PET-CT 01/09/2017 CT chest 08/02/2017, 01/10/2018 TECHNIQUE: CT scan performed of the chest without intravenous contrast. Images reviewed with lung, soft tissue and bone windows. Reconstructed coronal and sagittal MPR images reviewed. All images st ored on PACS. All CT scanners at this facility use dose modulation, iterative reconstruction, and/or weight based d osing when appropriate to reduce radiation dose to as low as reasonably achievable (ALARA). [facility]: Dose Right [facility]: CareDose [facility]: Dose Right [facility]: Teradose 4D [facility]: [employer] RADIATION DOSE: CT Rad equipment meets quality standard of care and radiation dose reduction techniq ues were employed. CTDIvol: 14.2 mGy. DLP: 519 mGy-cm. mGy. LIMITATIONS: No technical limitations. FINDINGS: LUNGS AND PLEURA: Again, a stable 2.7 x 1.8 cm right upper lobe mass is present with surro unding radiotherapy treatment markers. Stable biapical pleuroparenchymal scarring. Diffuse changes of advanced obstructive lung disease janel aterally. No acute infiltrates. No pleural effusion. No pneumothorax. HILAR AND MEDIASTINAL STRUCTURES: No identified masses or abnormal nodes. No obvious aneurysm. HEART AND VASCULAR STRUCTURES: No aneurysm. No pericardial effusion. UPPER ABDOMEN: Multiple hepatic cysts, 2.3 cm hemangioma right lobe liver unchanged. THYROID AND OTHER SOFT TISSUES: No masses. No adenopathy. BONES: No significant finding. HARDWARE: None in the chest. OTHER: No other significant findings. IMPRESSION: Stable appearance of the chest compared to CT 01/10/2018 TECHNICAL DOCUMENTATION: JOB ID: [id number] Quality ID # 436: Final reports with documentation of one or more dose reduction techniques (e.g., Au tomated exposure control, adjustment of the mA and/or kV according to patient size, use of iterative reconstruction technique) 2010 [employer]- All Rights Reserved Reading location - IP/workstation name: [email or web address]
== END ==
LOC: RAD 08:28
PROVIDERS: ATTEND Internal Medicine
DX: C34.11 Malignant neoplasm of upper lobe, right bronchus or lung (principal)
CPT/HCPCS: 71250

== ENCOUNTER → 2018-07-17 | Outpatient (CLI) | payer MEDICAID, MEDICARE ==
--- NOTE | 2018-07-19 11:46 | RADIOLOGY REPORT (SQ) ---
EXAM DESCRIPTION: CT CHEST WITHOUT COMPLETED DATE/TIME: 07/17/2018 8:56 am REASON FOR STUDY: LUNG CANCER C34.11 MALIGNANT NEOPLASM OF UPPER LOBE, RIGHT BRONCHUS OR L COMPARISON: PET-CT 10/09/2017, 01/09/2017 CT chest 08/02/2017, 01/10/2018, 04/14/2018 TECHNIQUE: CT scan performed of the chest without intravenous contrast. Images reviewed with lung, soft tissue and bone windows. Reconstructed coronal and sagittal MPR images reviewed. All images st ored on PACS. All CT scanners at this facility use dose modulation, iterative reconstruction, and/or weight based d osing when appropriate to reduce radiation dose to as low as reasonably achievable (ALARA). [facility]: Dose Right [facility]: CareDose [facility]: Dose Right [facility]: Teradose 4D [facility]: [employer] RADIATION DOSE: CT Rad equipment meets quality standard of care and radiation dose reduction techniq ues were employed. CTDIvol: 12.8 mGy. DLP: 471 mGy-cm. mGy. LIMITATIONS: No technical limitations. FINDINGS: LUNGS AND PLEURA: A right upper lobe mass is present, 2.4 x 1.7 cm in size adjacent to rad iotherapy treatment markers (was 2.7 x 1.8 cm in size on 04/14/2018 and 01/10/2018). Adjacent smaller 9 mm nodule seen on PET-CT 10/09/2017 is 6 mm in size on axial image 27. Lungs are hyperlucent with enlarged airspaces from obstructive disease. Bandlike scarring in the rig ht upper lobe without worrisome features. No pleural effusion. No pneumothorax. Airways are patent . HILAR AND MEDIASTINAL STRUCTURES: No identified masses or abnormal nodes. No obvious aneurysm. HEART AND VASCULAR STRUCTURES: No aneurysm. No pericardial effusion. LAD calcification UPPER ABDOMEN: Multiple hepatic cysts, probable hemangioma right lobe liver unchanged from previous e [employer] exam. THYROID AND OTHER SOFT TISSUES: No masses. No adenopathy. Old biopsy clip in the medial right breas t post benign biopsy. BONES: No significant finding. HARDWARE: None in the chest. OTHER: No other significant findings. IMPRESSION: Stable previously treated right upper lobe nodule. No CT evidence of metastatic disease to the chest TECHNICAL DOCUMENTATION: JOB ID: [id number] Quality ID # 436: Final reports with documentation of one or more dose reduction techniques (e.g., Au tomated exposure control, adjustment of the mA and/or kV according to patient size, use of iterative reconstruction technique) 2010 [employer]- All Rights Reserved Reading location - IP/workstation name: [email or web address]
== END ==
LOC: RAD 08:07
PROVIDERS: ATTEND Physician Assistant Medical
DX: C34.11 Malignant neoplasm of upper lobe, right bronchus or lung (principal)
CPT/HCPCS: 71250

== ENCOUNTER → 2018-11-06 | Outpatient (CLI) | payer MEDICAID, MEDICARE ==
--- NOTE | 2018-11-06 12:35 | RADIOLOGY REPORT (SQ) ---
EXAM DESCRIPTION: CT CHEST WITHOUT COMPLETED DATE/TIME: 11/06/2018 8:34 am REASON FOR STUDY: MALIGNANT NEOPLASM OF UPPER LOBE, RIGHT BRONCHUS OR LUNG C34.11 MALIGNANT NEOPLAS M OF UPPER LOBE, RIGHT BRONCHUS OR L COMPARISON: 07/17/2018 TECHNIQUE: CT scan performed of the chest without intravenous contrast. Images reviewed with lung, soft tissue and bone windows. Reconstructed coronal and sagittal MPR images reviewed. All images st ored on PACS. All CT scanners at this facility use dose modulation, iterative reconstruction, and/or weight based d osing when appropriate to reduce radiation dose to as low as reasonably achievable (ALARA). [facility]: Dose Right [facility]: CareDose [facility]: Dose Right [facility]: Teradose 4D [facility]: [employer] RADIATION DOSE: CT Rad equipment meets quality standard of care and radiation dose reduction techniq ues were employed. CTDIvol: 14.2 mGy. DLP: 525 mGy-cm. mGy. LIMITATIONS: No technical limitations. FINDINGS: LUNGS AND PLEURA: Marked emphysematous changes. Scarring the right upper lobe. Confluent opacification in the right upper lobe measures 25 x 25 mm on image 35. This has increased in size. Opacification extends to the right hilum. HILAR AND MEDIASTINAL STRUCTURES: No identified masses or abnormal nodes. No obvious aneurysm. HEART AND VASCULAR STRUCTURES: No aneurysm. There is pericardial thickening. UPPER ABDOMEN: No significant findings. Limited exam. THYROID AND OTHER SOFT TISSUES: No masses. No adenopathy. BONES: No significant finding. HARDWARE: Surgical clips in the right upper lobe. OTHER: No other significant findings. IMPRESSION: Pulmonary emphysema. Scarring in the right upper lobe. There is increased confluent op acification in the right upper lobe compared to the earlier study. TECHNICAL DOCUMENTATION: JOB ID: [id number] Quality ID # 436: Final reports with documentation of one or more dose reduction techniques (e.g., Au tomated exposure control, adjustment of the mA and/or kV according to patient size, use of iterative reconstruction technique) 2010 [employer]- All Rights Reserved Reading location - IP/workstation name: [email or web address]
== END ==
LOC: RAD 08:19
PROVIDERS: ATTEND Physician Assistant Medical
DX: C34.11 Malignant neoplasm of upper lobe, right bronchus or lung (principal)
CPT/HCPCS: 71250

== ENCOUNTER → 2019-01-29 | Outpatient (CLI) | payer MEDICARE, MEDICAID ==
--- NOTE | 2019-01-29 13:12 | WOMENS IMAGING REPORT ---
EXAM DESCRIPTION: BONE DENSITY HIP/SPINE COMPLETED DATE/TIME: 01/29/2019 10:21 am REASON FOR STUDY: Z78.0 ASYMPTOMATIC MENOPAUSAL STATE Z12.31 ENCNTR SCREEN MAMMOGRAM FOR MALIGNANT NEOPLASM OF ROBERTO Z78.0 ASYMPTOMATIC MENOPAUSAL STATE COMPARISON: 12/07/2016 TECHNIQUE: Dual-Energy X-ray Absorptiometry (DEXA) of the AP Spine and Hip. LIMITATIONS: None. FINDINGS: LUMBAR SPINE: The bone mineral density (BMD) measured from L1-L4 in the AP projection correlates with a T-score of -1.9, which is osteopenia as defined by the World Health Organization. HIP: The bone mineral density (BMD) measured in the left hip correlates with a T-score of -1.4 in the femo ral neck, which is osteopenia as defined by the World Health Organization. IMPRESSION: 1. LUMBAR SPINE: Osteopenia 2. HIP: Osteopenia COMMENT: The patient's 10 year risk of major osteoporotic fracture is 3%. Her 10 year risk of hip f racture is 0.1%. The World Health Organization defines low BMD as follows: T-score: Normal: Greater than -1.0 Osteopenia: Between -1.0 and -2.5 Osteoporosis: Less than -2.5 without fractures Established osteoporosis: Less than -2.5 with fractures In general, you may wish to consider: Diagnosis Treatment Follow-up DEXA Normal BMD Prevention 2-3 years Osteopenia Prevention/Therapy 1-2 years Osteoporosis Therapy Yearly TECHNICAL DOCUMENTATION: JOB ID: [id number] [employer]- All Rights Reserved Reading location - IP/workstation name: [email or web address]
--- NOTE | 2019-01-29 14:51 | WOMENS IMAGING REPORT ---
EXAM DESCRIPTION: BILAT SCREENING MAMMO W/CAD COMPLETED DATE/TIME: 01/29/2019 10:21 am REASON FOR STUDY: Z12.31 ENCOUNTER FOR SCREENING MAMMOGRAM FOR MALIGNANT NEOPLASM OF BREAST Z12.31 ENCNTR SCREEN MAMMOGRAM FOR MALIGNANT NEOPLASM OF ROBERTO Z78.0 ASYMPTOMATIC MENOPAUSAL STATE COMPARISON: 2017, 2016 EXAM PARAMETERS: Standard craniocaudal and mediolateral oblique views of each breast recorded using digital acquisition. Read with the assistance of CAD. .[facility] - R2 [employer] Version 9.2 LIMITATIONS: None. FINDINGS: No suspicious masses, suspicious calcifications or architectural distortion. No areas of s uspicion. IMPRESSION: Negative MAMMOGRAM. BIRADS 1 BREAST DENSITY: a. The breasts are almost entirely fatty. BIRAD: ASSESSMENT: 1 NEGATIVE RECOMMENDATION: ROUTINE SCREENING COMMENT: The patient has been notified of the results by letter per MQSA requirements. Additional no tification policies are in place for contacting patient with suspicious or incomplete findings. Quality ID #225: The [employer] recommends an annual screening mammogram for women aged 40 years or over. This facility utilizes a reminder system to ensure that all patients receive reminder letters, and/or direct phone calls for appointments. This includes reminders for routine scr eening mammograms, diagnostic mammograms, or other Breast Imaging Interventions when appropriate. Th is patient will be placed in the appropriate reminder system. TECHNICAL DOCUMENTATION: FINDING NUMBER: (1) ASSESSMENT: (1) JOB ID: [id number] [employer]- All Rights Reserved Reading location - IP/workstation name: [email or web address]
== END ==
LOC: WI 08:55
PROVIDERS: ATTEND Family Medicine
DX: Z12.31 Encounter for screening mammogram for malignant neoplasm of breast (principal); Z78.0 Asymptomatic menopausal state; M85.88 Other specified disorders of bone density and structure, other site
CPT/HCPCS: 77067; 77080

== ENCOUNTER → 2019-02-09 | Outpatient (CLI) | payer MEDICAID, MEDICARE ==
--- NOTE | 2019-02-09 11:12 | RADIOLOGY REPORT (SQ) ---
EXAM DESCRIPTION: CT CHEST WITHOUT COMPLETED DATE/TIME: 02/09/2019 8:45 am REASON FOR STUDY: C34.11 MALIGNANT NEOPLASM OF UPPER LOBE, RIGHT BRONCHUS OR LUNG C34.11 MALIGNANT NEOPLASM OF UPPER LOBE, RIGHT BRONCHUS OR L COMPARISON: 11/06/2018 TECHNIQUE: CT scan performed of the chest without intravenous contrast. Images reviewed with lung, soft tissue and bone windows. Reconstructed coronal and sagittal MPR images reviewed. All images st ored on PACS. All CT scanners at this facility use dose modulation, iterative reconstruction, and/or weight based d osing when appropriate to reduce radiation dose to as low as reasonably achievable (ALARA). [facility]: Dose Right [facility]: CareDose [facility]: Dose Right [facility]: Teradose 4D [facility]: [employer] RADIATION DOSE: CT Rad equipment meets quality standard of care and radiation dose reduction techniq ues were employed. CTDIvol: 14.0 mGy. DLP: 567 mGy-cm. mGy. LIMITATIONS: No technical limitations. FINDINGS: LUNGS AND PLEURA: Pulmonary emphysema there is confluent opacification in the right upper lobe extending from the hilum. At the largest point this measures 23 x 24 mm. Coronal and sagittal images confirm that there is little, if any change. There are no new pulmonary masses. HILAR AND MEDIASTINAL STRUCTURES: No identified masses or abnormal nodes. No obvious aneurysm. HEART AND VASCULAR STRUCTURES: No aneurysm. There is a small pericardial effusion. UPPER ABDOMEN: There are numerous hepatic cysts. There is or low-attenuation lesion in the right lob e of the liver that measures about 22 mm that shows peripheral calcification. This is stable. THYROID AND OTHER SOFT TISSUES: No masses. No adenopathy. BONES: No significant finding. HARDWARE: None in the chest. OTHER: No other significant findings. IMPRESSION: Pulmonary emphysema. Masslike opacification in the right upper lobe is relatively stabl e. No new pulmonary findings. TECHNICAL DOCUMENTATION: JOB ID: [id number] Quality ID # [id number]: Final reports with documentation of one or more dose reduction techniques (e.g., Au tomated exposure control, adjustment of the mA and/or kV according to patient size, use of iterative reconstruction technique) 2010 [employer]- All Rights Reserved Reading location - IP/workstation name: [email or web address]
== END ==
LOC: RAD 08:05
PROVIDERS: ATTEND Internal Medicine
DX: C34.11 Malignant neoplasm of upper lobe, right bronchus or lung (principal)
CPT/HCPCS: 71250

== ENCOUNTER → 2019-05-14 | Outpatient (CLI) | payer MEDICARE, OTHER ==
--- NOTE | 2019-05-14 11:36 | RADIOLOGY REPORT (SQ) ---
EXAM DESCRIPTION: CT CHEST WITH COMPLETED DATE/TIME: 05/14/2019 8:13 am REASON FOR STUDY: LUNG CA (C34.11) C34.11 MALIGNANT NEOPLASM OF UPPER LOBE, RIGHT BRONCHUS OR L COMPARISON: PET-CT 10/09/2017 CT chest 01/10/2018, 07/17/2018, 11/06/2018, 02/09/2019 TECHNIQUE: CT scan of the chest performed using helical scanning technique with dynamic intravenous contrast injection. Images reviewed with lung, soft tissue and bone windows. Reconstructed coronal and sagittal MPR and MIP images reviewed. All images stored on PACS. All CT scanners at this facility use dose modulation, iterative reconstruction, and/or weight based d osing when appropriate to reduce radiation dose to as low as reasonably achievable (ALARA). [facility]: Dose Right [facility]: CareDose [facility]: Dose Right [facility]: Teradose 4D [facility]: [employer] CONTRAST TYPE AND DOSE: contrast/concentration: Isovue 350.00 mg/ml; Total Contrast Delivered: 80.0 ml; Total Saline Delivered: 55.0 ml RENAL FUNCTION: Creatinine 1.0 RADIATION DOSE: CT Rad equipment meets quality standard of care and radiation dose reduction techniq ues were employed. CTDIvol: 13.8 mGy. DLP: 572 mGy-cm. . LIMITATIONS: None. FINDINGS: LUNGS AND PLEURA: Up part solid nodule persists at the right lung apex with radiotherapy t reatment markers, 2.2 x 2.2 cm in diameter axial image 29/120. This is stable compared to previous e xams. Advanced changes of obstructive lung disease elsewhere throughout the lung parenchyma. No other worr isome nodules. No pleural effusion or pneumothorax. No acute infiltrates. HILAR AND MEDIASTINAL STRUCTURES: No identified masses or abnormal nodes. HEART AND VASCULAR STRUCTURES: No aneurysm or dissection. No central pulmonary emboli. No pericardi al effusion. Heavily calcified proximal LAD HARDWARE: None in the chest. UPPER ABDOMEN: Multiple hepatic cysts are stable. Peripherally calcified intermediate density 2.5 cm cyst in the right lobe liver is unchanged from PET-CT 10/09/2017, benign. THYROID AND OTHER SOFT TISSUES: No masses. No adenopathy. BONES: No significant finding. OTHER: No other significant finding. IMPRESSION: Stable treated right apical lung mass with fiducials. TECHNICAL DOCUMENTATION: JOB ID: [id number] Quality ID # [id number]: Final reports with documentation of one or more dose reduction techniques (e.g., Au tomated exposure control, adjustment of the mA and/or kV according to patient size, use of iterative reconstruction technique) 2010 [employer]- All Rights Reserved Reading location - IP/workstation name: [email or web address]
== END ==
LOC: RAD 07:50
PROVIDERS: ATTEND Internal Medicine Hematology & Oncology
DX: C34.11 Malignant neoplasm of upper lobe, right bronchus or lung (principal)
CPT/HCPCS: 71260; 82565

== ENCOUNTER → 2019-08-10 | Outpatient (CLI) | payer MEDICARE, OTHER ==
--- NOTE | 2019-08-10 12:08 | RADIOLOGY REPORT (SQ) ---
EXAM DESCRIPTION: CT CHEST WITH COMPLETED DATE/TIME: 08/10/2019 9:19 am REASON FOR STUDY: C34.11 MALIGNANT NEOPLASM OF UPPER LOBE, RIGHT BRONCHUS OR LUNG C34.11 MALIGNANT NEOPLASM OF UPPER LOBE, RIGHT BRONCHUS OR L COMPARISON: CT of the chest with contrast on 05/14/2019. TECHNIQUE: CT scan of the chest performed using helical scanning technique with dynamic intravenous contrast injection. Images reviewed with lung, soft tissue and bone windows. Reconstructed coronal and sagittal MPR and MIP images reviewed. All images stored on PACS. All CT scanners at this facility use dose modulation, iterative reconstruction, and/or weight based d osing when appropriate to reduce radiation dose to as low as reasonably achievable (ALARA). [facility]: Dose Right [facility]: CareDose [facility]: Dose Right [facility]: Teradose 4D [facility]: [employer] CONTRAST TYPE AND DOSE: Contrast/concentration: Isovue 350.00 mg/ml; Total Contrast Delivered: 80.0 ml; Total Saline Delivered: 55.0 ml RENAL FUNCTION: Creatinine 0.9 mg per dL RADIATION DOSE: CT Rad equipment meets quality standard of care and radiation dose reduction techniq ues were employed. CTDIvol: 14.9 mGy. DLP: 535 mGy-cm. . LIMITATIONS: None. FINDINGS: LUNGS AND PLEURA: The short axis diameter of the solid mass in the right upper lobe with r adiotherapy treatment markers (image 31 of series 4) is unchanged from 05/14/2019. The 6 x 5 mm nodul e in the left upper lobe (image 10 of series 4) and the spiculated nodular opacity in the right upper lobe (image 18 of series 4) are also unchanged. There is no other pulmonary nodule or mass. The tr achea and main bronchi are patent. There is mild bronchiolectasis and there is moderate to severe up per lobe predominant centrilobular and paraseptal emphysema. There is no alveolar consolidation, joshua und-glass opacification, pleural effusion or pneumothorax. HILAR AND MEDIASTINAL STRUCTURES: No enlarged mediastinal or hilar lymph nodes. HEART AND VASCULAR STRUCTURES: The heart is enlarged. There is a trace pericardial effusion and ther e is moderate atherosclerotic calcification of the coronary arteries. The thoracic aorta is normal i n caliber. There is no thoracic aortic dissection. HARDWARE: None in the chest. UPPER ABDOMEN: There are several hypodense hepatic lesions are unchanged ; these include 2.3 x 2 cm h ypodense lesion at the junction of hepatic segments 7 and 8 (image 48 of series 2) with a thin layeri ng curvilinear hyperdensity. The spleen is normal in size. The water-attenuation lesion inferior to the left hemidiaphragm (image 47 of series 2) is stable. There is a hiatal hernia. There is no adr enal mass. THYROID AND OTHER SOFT TISSUES: No masses or adenopathy. BONES: No acute findings. OTHER: No other finding. IMPRESSION: The solid mass in the right upper lobe with fiducial markers is unchanged in size compar ed to the prior CT. The other nodular opacity in the right upper lobe (image 18 of series 4) and the 6 x 5 mm nodule in the left upper lobe (image 10 of series 4) are also unchanged. TECHNICAL DOCUMENTATION: JOB ID: [id number] Quality ID # [id number]: Final reports with documentation of one or more dose reduction techniques (e.g., Au tomated exposure control, adjustment of the mA and/or kV according to patient size, use of iterative reconstruction technique) 2010 [employer]- All Rights Reserved Reading location - IP/workstation name: [email or web address]
== END ==
LOC: RAD 08:49
PROVIDERS: ATTEND Physician Assistant Medical
DX: C34.11 Malignant neoplasm of upper lobe, right bronchus or lung (principal)
CPT/HCPCS: 71260; 82565

== ENCOUNTER → 2020-02-14 | Outpatient (CLI) | payer MEDICARE, OTHER ==
--- NOTE | 2020-02-14 12:23 | RADIOLOGY REPORT (SQ) ---
EXAM DESCRIPTION: CT CHEST WITH IMAGES COMPLETED DATE/TIME: 02/14/2020 8:44 am REASON FOR STUDY: C34.11 MALIGNANT NEOPLASM OF UPPER LOBE, RIGHT BRONCHUS OR LUNG C34.11 MALIGNANT NEOPLASM OF UPPER LOBE, RIGHT BRONCHUS OR L COMPARISON: 08/10/2019 TECHNIQUE: CT scan of the chest performed using helical scanning technique with dynamic intravenous contrast injection. Images reviewed with lung, soft tissue and bone windows. Reconstructed coronal and sagittal MPR and MIP images reviewed. All images stored on PACS. All CT scanners at this facility use dose modulation, iterative reconstruction, and/or weight based d osing when appropriate to reduce radiation dose to as low as reasonably achievable (ALARA). [facility]: Dose Right [facility]: CareDose [facility]: Dose Right [facility]: Teradose 4D [facility]: [employer] CONTRAST TYPE AND DOSE: contrast/concentration: Isovue 350.00 mmol/ml; Total Contrast Delivered: 80. 0 ml; Total Saline Delivered: 55.0 ml RENAL FUNCTION: Creatinine 1.0 RADIATION DOSE: CT Rad equipment meets quality standard of care and radiation dose reduction techniq ues were employed. CTDIvol: 14.9 mGy. DLP: 624 mGy-cm. . LIMITATIONS: None. FINDINGS: LUNGS AND PLEURA: A left upper lobe nodule demonstrated on comparison imaging appears incr eased in size on today's examination, measuring on the order of 9 x 7 x 11 mm (previously 6 x 5 x 6 m m). A spiculated mass seen within the right upper lobe does not appear to be significantly changed i n the study interval. No new nodule or mass demonstrated. Stable background of centrilobular and pa raseptal emphysematous changes. No focal consolidation, pleural effusion or pneumothorax. Mild cyli ndrical bronchiectasis. HILAR AND MEDIASTINAL STRUCTURES: No identified masses or abnormal nodes. HEART AND VASCULAR STRUCTURES: Ectatic appearing ascending aorta. No dissection. Increased pericard ial effusion. Coronary artery calcifications are demonstrated. HARDWARE: None in the chest. UPPER ABDOMEN: Limited exam. Grossly stable appearance of scattered hypodense foci seen throughout t he liver. A cystic structure seen subjacent to the left hemidiaphragm appears to be an exophytic cys t emanating from the left lobe of the liver. No significant changes. THYROID AND OTHER SOFT TISSUES: No masses. No adenopathy. BONES: No significant finding. OTHER: No other significant finding. IMPRESSION: Right upper lobe mass appears stable in size. A left upper lobe nodular density appears increased in size in the study interval, measuring 9 x 7 x 11 mm (previously 6 x 5 x 6 mm). Increas ed pericardial effusion. Otherwise stable CT appearance of the chest. TECHNICAL DOCUMENTATION: JOB ID: [id number] Quality ID # 436: Final reports with documentation of one or more dose reduction techniques (e.g., Au tomated exposure control, adjustment of the mA and/or kV according to patient size, use of iterative reconstruction technique) 2010 [employer]- All Rights Reserved Reading location - IP/workstation name: [email or web address]
== END ==
LOC: RAD 08:16
PROVIDERS: ATTEND Internal Medicine
DX: C34.11 Malignant neoplasm of upper lobe, right bronchus or lung (principal)
CPT/HCPCS: 71260; 82565

== ENCOUNTER → 2020-02-26 | Outpatient (CLI) | payer MEDICARE, OTHER ==
--- NOTE | 2020-02-27 14:56 | RADIOLOGY REPORT (SQ) ---
EXAM DESCRIPTION: PET CT SKULL/THIGH IMAGES COMPLETED DATE/TIME: 02/26/2020 5:41 pm REASON FOR STUDY: C34.11 MALIGNANT NEOPLASM OF UPPER LOBE, RIGHT BRONCHUS OR LUNG C34.11 MALIGNANT NEOPLASM OF UPPER LOBE, RIGHT BRONCHUS OR L COMPARISON: 10/09/2017 RADIONUCLIDE AND DOSE: 10.4 mCi F18 FDG The route of agent administration: Intravenous FASTING BLOOD SUGAR: 106 mg/dl CONTRAST TYPE AND DOSE: No CT contrast given. TECHNIQUE: Blood glucose level was verified. Above dose of FDG was injected intravenously. 2-D seg mented attenuation correction images were obtained from the base of the skull to the midthighs. Nonc ontrast CT images were obtained for attenuation correction and fusion with emission images. CT image s were performed without oral or intravenous contrast and are not sensitive for parenchymal lesions. A series of overlapping emission PET images were obtained. Images reviewed and manipulated at [facility] work station by the radiologist. Images stored on PACS. LIMITATIONS: None. FINDINGS: HEAD AND NECK: No areas of abnormal metabolic activity in the soft tissues of the head and neck. CHEST: Mild interval change in the previously described right upper lobe primary nodule measuring 3.0 x 1.8 cm, previously described 2.6 x 1.7 cm on prior PET-CT and measuring 3.9 x 2.[address] c hest. There is mild diffuse activity throughout (max SUV 2.5, previously 3.1). There are internal r adiotherapy markers present. There is an adjacent area of pleural thickening measuring approximately 18 x 18 mm (series 3, image 67) which also demonstrates mild diffuse activity (max SUV 2.4). Previo us described 9 mm upper lobe nodule has decreased in conspicuity without focal uptake. There is a 10 mm left upper lobe nodule (series 3, image 56) which demonstrates mild uptake (max SUV 2.5). No oth er new areas of abnormal uptake within the thorax. Centrilobular and panacinar emphysema. Scattered coronary atherosclerosis. ABDOMEN AND PELVIS: No areas of abnormal metabolic activity in the abdomen or pelvis. Expected physi ologic activity is present in the genitourinary system and bowel. Stable to decreased conspicuity of multiple hypodense hepatic lesions without discrete focal uptake. These are incompletely characteri zed. Status post hysterectomy. Aortoiliac atherosclerosis. PROXIMAL LOWER EXTREMITIES: No areas of abnormal metabolic activity in the soft tissues of the lower extremities. BONES: No abnormal metabolic activity in the visualized skeleton. ADDITIONAL CT FINDINGS: As above. OTHER: Background hepatic activity max SUV 3.3 IMPRESSION: 1. Grossly stable right upper lobe nodule and adjacent pleural thickening with mild dif fuse activity throughout (max SUV 2.5) which is below background hepatic activity. Findings nonspeci fic and may represent post treatment change although residual disease not entirely excluded. 2. 10 mm left upper lobe nodule with mild uptake (max SUV 2.5), previously measuring 6 mm on prior C T chest dated 08/10/2019. Findings moderately suspicious for additional disease. Resolution of prev iously described 9 mm right upper lobe pulmonary nodule. 3. Stable incompletely characterized hypodense hepatic lesions without focal uptake. TECHNICAL DOCUMENTATION: JOB ID: [id number] 2010 [employer]- All Rights Reserved Reading location - IP/workstation name: [email or web address]
== END ==
LOC: RAD 12:40
PROVIDERS: ATTEND Internal Medicine
DX: C34.11 Malignant neoplasm of upper lobe, right bronchus or lung (principal)
CPT/HCPCS: 78815; A9552

== ENCOUNTER → 2020-03-04 | Outpatient (CLI) | payer MEDICARE, OTHER ==
--- NOTE | 2020-03-04 10:29 | WOMENS IMAGING REPORT ---
EXAM DESCRIPTION: BILAT SCREENING MAMMO W/CAD IMAGES COMPLETED DATE/TIME: 03/04/2020 10:12 am REASON FOR STUDY: Z12.31 ENCNTR SCREEN MAMMOGRAM FOR MALIGNANT NEOPLASM OF BREAST Z12.31 ENCNTR SCR EEN MAMMOGRAM FOR MALIGNANT NEOPLASM OF ROBERTO COMPARISON: 01/29/2019 and 01/25/2018. EXAM PARAMETERS: Standard craniocaudal and mediolateral oblique views of each breast recorded using digital acquisition. Read with the assistance of CAD. .[facility] - R2 Professor Of Architecture Version 9.2 LIMITATIONS: None. FINDINGS: No suspicious masses, suspicious calcifications or architectural distortion. No areas of c oncern. IMPRESSION: NEGATIVE MAMMOGRAM. BIRADS 1 BREAST DENSITY: a. The breasts are almost entirely fatty. BIRAD: ASSESSMENT: 1 NEGATIVE RECOMMENDATION: ROUTINE SCREENING COMMENT: The patient has been notified of the results by letter per MQSA requirements. Additional no tification policies are in place for contacting patient with suspicious or incomplete findings. Quality ID #225: The [employer] recommends an annual screening mammogram for women aged 40 years or over. This facility utilizes a reminder system to ensure that all patients receive reminder letters, and/or direct phone calls for appointments. This includes reminders for routine scr eening mammograms, diagnostic mammograms, or other Breast Imaging Interventions when appropriate. Th is patient will be placed in the appropriate reminder system. TECHNICAL DOCUMENTATION: FINDING NUMBER: (1) ASSESSMENT: (1) JOB ID: [id number] 2010 [employer]- All Rights Reserved Reading location - IP/workstation name: [email or web address]
== END ==
LOC: WI 09:45
PROVIDERS: ATTEND Family Medicine
DX: Z12.31 Encounter for screening mammogram for malignant neoplasm of breast (principal)
CPT/HCPCS: 77067

== ENCOUNTER → 2020-06-02 | Outpatient (CLI) | payer MEDICARE, OTHER ==
--- NOTE | 2020-06-02 14:11 | RADIOLOGY REPORT (SQ) ---
EXAM DESCRIPTION: CT CHEST WITH IMAGES COMPLETED DATE/TIME: 06/02/2020 10:40 am REASON FOR STUDY: C34.11 MALIGNANT NEOPLASM OF UPPER LOBE, RIGHT BRONCHUS OR LUNG C34.11 MALIGNANT NEOPLASM OF UPPER LOBE, RIGHT BRONCHUS OR L COMPARISON: 02/14/2020 TECHNIQUE: CT scan of the chest performed using helical scanning technique with dynamic intravenous contrast injection. Images reviewed with lung, soft tissue and bone windows. Reconstructed coronal and sagittal MPR and MIP images reviewed. All images stored on PACS. All CT scanners at this facility use dose modulation, iterative reconstruction, and/or weight based d osing when appropriate to reduce radiation dose to as low as reasonably achievable (ALARA). [facility]: Dose Right [facility]: CareDose [facility]: Dose Right [facility]: Teradose 4D [facility]: [employer] CONTRAST TYPE AND DOSE: contrast/concentration: Isovue 350.00 mmol/ml; Total Contrast Delivered: 80. 0 ml; Total Saline Delivered: 25.7 ml RENAL FUNCTION: Creatinine 1 RADIATION DOSE: CT Rad equipment meets quality standard of care and radiation dose reduction techniq ues were employed. CTDIvol: 16.2 mGy. DLP: 599 mGy-cm. . LIMITATIONS: None. FINDINGS: LUNGS AND PLEURA: Pulmonary emphysema predominantly in the upper lobes but also present in the lower lobes to some degree. Left upper lobe pulmonary nodule is larger, now measuring 16 x 11.7 mm. Masslike opacification extending from the upper right hilum to the pleural surface containing r adiotherapy markers is stable to slightly smaller, measuring 36 x 18 mm currently. No other signific ant full pulmonary findings. HILAR AND MEDIASTINAL STRUCTURES: No identified masses or abnormal nodes. HEART AND VASCULAR STRUCTURES: No aneurysm or dissection. No central pulmonary emboli. Small perica rdial effusion with a maximum depth of 13.9 mm on image 40. This is slightly improved. HARDWARE: None in the chest. UPPER ABDOMEN: There are several small low-density lesions in the liver having the appearance of cyst s or perhaps hemangiomas. There are couple of apparently solid lesions in the liver. The lesion on image 50 in the right lobe measures 25 mm, larger, measuring 21 mm on the prior study. A lesion in th e left lobe on image 60 measures 23.2 x 31.4 mm. This is slightly larger. THYROID AND OTHER SOFT TISSUES: No masses. No adenopathy. BONES: No significant finding. OTHER: No other significant finding. IMPRESSION: 1. Masslike opacification in the right upper lobe is relatively stable to slightly smal ler. 2. Left upper lobe pulmonary nodule is larger, measuring 16 x 11.7 mm currently. 3. There are couple of solid lesions in the liver that are larger than on the prior study. Concerni ng for metastases. 4. Pulmonary emphysema. TECHNICAL DOCUMENTATION: JOB ID: [id number] Quality ID # 436: Final reports with documentation of one or more dose reduction techniques (e.g., Au tomated exposure control, adjustment of the mA and/or kV according to patient size, use of iterative reconstruction technique) 2010 [employer]- All Rights Reserved Reading location - IP/workstation name: [email or web address]
== END ==
LOC: RAD 10:02
PROVIDERS: ATTEND Internal Medicine
DX: C34.11 Malignant neoplasm of upper lobe, right bronchus or lung (principal)
CPT/HCPCS: 71260; 82565

== ENCOUNTER → 2020-06-17 | Outpatient (CLI) | payer MEDICARE ==
--- NOTE | 2020-06-20 14:59 | RADIOLOGY REPORT (SQ) ---
EXAM DESCRIPTION: PET CT SKULL/THIGH IMAGES COMPLETED DATE/TIME: 06/17/2020 1:14 pm REASON FOR STUDY: MALIGNANT NEOPLASM OF UPPER LOBE, RIGHT BRONCHUS OR LUNG C34.11 MALIGNANT NEOPLAS M OF UPPER LOBE, RIGHT BRONCHUS OR L COMPARISON: PET-CT dated 02/26/2020, CT chest dated 06/02/2020 RADIONUCLIDE AND DOSE: 10.72 mCi F18 FDG The route of agent administration: Intravenous FASTING BLOOD SUGAR: 125 mg/dl CONTRAST TYPE AND DOSE: No CT contrast given. TECHNIQUE: Blood glucose level was verified. Above dose of FDG was injected intravenously. 2-D seg mented attenuation correction images were obtained from the base of the skull to the midthighs. Nonc ontrast CT images were obtained for attenuation correction and fusion with emission images. CT image s were performed without oral or intravenous contrast and are not sensitive for parenchymal lesions. A series of overlapping emission PET images were obtained. Images reviewed and manipulated at [facility] work station by the radiologist. Images stored on PACS. LIMITATIONS: None. FINDINGS: HEAD AND NECK: No areas of abnormal metabolic activity in the soft tissues of the head and neck. CHEST: Increased metabolic activity in the left upper lobe pulmonary nodule posteriorly this is best demonstrated on image 57. SUV is 4.3 consistent with neoplasm. Minimal uptake on prior PET-CT in th is region. Mild diffuse uptake in the masslike infiltrate in the right upper lobe. Highest SUV is 2 .0. ABDOMEN AND PELVIS: No areas of abnormal metabolic activity in the abdomen or pelvis. Expected physi ologic activity is present in the genitourinary system and bowel. PROXIMAL LOWER EXTREMITIES: No areas of abnormal metabolic activity in the soft tissues of the lower extremities. BONES: No abnormal metabolic activity in the visualized skeleton. ADDITIONAL CT FINDINGS: Underlying emphysematous change. OTHER: No other significant findings. IMPRESSION: Increasing metabolic activity in the pulmonary nodule in the left upper lobe. SUV is 4. 3 consistent with neoplasm. This is increased from prior PET. The nodule now measures 1.5 cm in gre atest diameter. Mild diffuse uptake in the masslike infiltrate previously described in the right upp er lobe. This is stable in appearance. TECHNICAL DOCUMENTATION: JOB ID: [id number] 2010 [employer]- All Rights Reserved Reading location - IP/workstation name: [email or web address]
== END ==
LOC: RAD 09:40
PROVIDERS: ATTEND Internal Medicine
DX: C34.11 Malignant neoplasm of upper lobe, right bronchus or lung (principal)
CPT/HCPCS: 78815; A9552